=== PATIENT | male | born 1950 | race Caucasian/White ===

== ENCOUNTER → 2017-10-19 | Outpatient (CLI) | payer MEDICARE, OTHER, SELFPAY | PROVIDERS: Visit Provider Registered Nurse | DX: D69.3 Immune thrombocytopenic purpura (principal) | CPT/HCPCS: 36415; 85025 ==

== ENCOUNTER → 2017-12-15 11:54 | Outpatient (CLI) | payer MEDICARE, OTHER, SELFPAY ==
[2017-12-15 12:56] LABS: Basophils # 0.1 K/mm3 (0-0.2); Basophils % 0.5 % (0.1-2.0); Eosinophils # 0.1 K/mm3 (0.0-0.4); Hematocrit 47.2 % (42.0-52.0); Hemoglobin 15.9 g/dL (14.1-18.0); Lymphocytes % 30.4 K/mm3 (10-50); Mean Corpuscular HGB Conc 33.6 g/dL (31.8-35.4); Mean Corpuscular Hemoglobin 30.3 pg (27.0-31.2); Mean Corpuscular Volume 90.2 fl (80-94); Mean Platelet Volume 7.2 fl (7.4-10.4); Monocytes # 0.9 K/mm3 (0.1-1.0); Monocytes % 9.4 % (1.7-9.3); Neutrophils # 5.8 K/mm3 (1.8-7.8); Neutrophils % 58.7 % (37.0-80.0); Platelet Count 286 K/mm3 (142-424); Red Blood Count 5.23 M/mm3 (4.60-6.20); Red Cell Distribution Width 13.6 % (11.5-17.5); White Blood Count 9.9 K/mm3 (4.8-10.8)
== END ==
PROVIDERS: PCP Physician Assistant; Visit Provider Registered Nurse
DX: D69.3 Immune thrombocytopenic purpura (principal)
CPT/HCPCS: 36415; 85025

== ENCOUNTER → 2018-03-07 17:33 | Outpatient (CLI) | payer MEDICARE, SELFPAY ==
[2018-03-07 18:18] LABS: Basophils % 0.5 % (0.1-2.0); Eosinophils # 0.1 K/mm3 (0.0-0.4); Eosinophils % 1.4 % (0.1-12.0); Hematocrit 43.8 % (42.0-52.0); Hemoglobin 14.4 g/dL (14.1-18.0); Lymphocytes # 2.2 K/mm3 (0.7-4.5); Lymphocytes % 29.9 K/mm3 (10-50); Mean Corpuscular HGB Conc 32.9 g/dL (31.8-35.4); Mean Corpuscular Hemoglobin 31.3 pg (27.0-31.2); Mean Corpuscular Volume 95.1 fl (80-94); Mean Platelet Volume 7.5 fl (7.4-10.4); Monocytes # 0.5 K/mm3 (0.1-1.0); Monocytes % 6.6 % (1.7-9.3); Neutrophils # 4.4 K/mm3 (1.8-7.8); Neutrophils % 61.5 % (37.0-80.0); Platelet Count 252 K/mm3 (142-424); Red Cell Distribution Width 12.7 % (11.5-17.5); White Blood Count 7.2 K/mm3 (4.8-10.8)
[2018-03-07 19:04] LABS: Blood Urea Nitrogen 15 mg/dL (7-18); Carbon Dioxide 28 mmol/L (21.0-32.0); Creatinine,Serum 1.04 mg/dL (0.70-1.30); Estimated Glomerular Filt Rate 71 ml/min (>60); GFR (African American) 86 ML/MIN (>60); Glucose 91 mg/dL (74-106)
[2018-03-07 19:08] LABS: Anion Gap 8.8 mEq/L (5-15); Chloride 104 mmol/L (98-107); Potassium 4.8 mmoL/L (3.5-5.1); Sodium 136 mmol/L (136-145)
== END ==
PROVIDERS: Visit Provider Registered Nurse
DX: D69.3 Immune thrombocytopenic purpura (principal)
CPT/HCPCS: 36415; 80048; 85025

== ENCOUNTER → 2018-04-27 14:21 | Outpatient (CLI) | payer MEDICARE, SELFPAY ==
[2018-04-27 14:45] LABS: Basophils % 0.3 % (0.1-2.0); Eosinophils # 0.1 K/mm3 (0.0-0.4); Eosinophils % 1.8 % (0.1-12.0); Hematocrit 43.1 % (42.0-52.0); Hemoglobin 13.9 g/dL (14.1-18.0); Lymphocytes # 1.9 K/mm3 (0.7-4.5); Lymphocytes % 26.9 K/mm3 (10-50); Mean Corpuscular HGB Conc 32.1 g/dL (31.8-35.4); Mean Corpuscular Hemoglobin 29.8 pg (27.0-31.2); Mean Corpuscular Volume 92.7 fl (80-94); Mean Platelet Volume 7.3 fl (7.4-10.4); Monocytes # 0.6 K/mm3 (0.1-1.0); Neutrophils # 4.4 K/mm3 (1.8-7.8); Platelet Count 235 K/mm3 (142-424); Red Blood Count 4.65 M/mm3 (4.60-6.20); Red Cell Distribution Width 12.8 % (11.5-17.5); White Blood Count 6.9 K/mm3 (4.8-10.8)
[2018-04-27 17:04] LABS: Anion Gap 13.2 mEq/L (5-15); Blood Urea Nitrogen 14 mg/dL (7-18); Calcium 8.3 mg/dL (8.5-10.1); Carbon Dioxide 24 mmol/L (21.0-32.0); Chloride 105 mmol/L (98-107); Creatinine,Serum 1.04 mg/dL (0.70-1.30); Estimated Glomerular Filt Rate 71 ml/min (>60); GFR (African American) 86 ML/MIN (>60); Glucose 99 mg/dL (74-106); Potassium 4.2 mmoL/L (3.5-5.1); Sodium 138 mmol/L (136-145)
== END ==
PROVIDERS: Visit Provider Family Medicine
DX: D69.3 Immune thrombocytopenic purpura (principal)
CPT/HCPCS: 36415; 80048; 85025

== ENCOUNTER → 2018-06-16 09:47 | Outpatient (CLI) | payer MEDICARE, OTHER, SELFPAY ==
[2018-06-16 10:34] LABS: Basophils % 0.6 % (0.1-2.0); Eosinophils # 0.2 K/mm3 (0.0-0.4); Hematocrit 44.1 % (42.0-52.0); Hemoglobin 14.4 g/dL (14.1-18.0); Lymphocytes % 25.3 K/mm3 (10-50); Mean Corpuscular HGB Conc 32.8 g/dL (31.8-35.4); Mean Corpuscular Hemoglobin 30.7 pg (27.0-31.2); Mean Corpuscular Volume 93.7 fl (80-94); Mean Platelet Volume 6.8 fl (7.4-10.4); Monocytes # 0.6 K/mm3 (0.1-1.0); Monocytes % 8.2 % (1.7-9.3); Neutrophils # 4.9 K/mm3 (1.8-7.8); Neutrophils % 63.8 % (37.0-80.0); Platelet Count 253 K/mm3 (142-424); Red Cell Distribution Width 13.4 % (11.5-17.5); White Blood Count 7.7 K/mm3 (4.8-10.8)
[2018-06-16 10:52] LABS: Alanine Aminotransferase 29 U/L (12-78); Albumin Level 3.9 gm/dL (3.4-5.0); Albumin/Globulin Ratio 1.1 (1.1-1.8); Alkaline Phosphatase 113 U/L (46-116); Anion Gap 13.4 mEq/L (5-15); Aspartate Amino Transferase 18 U/L (15-37); Bilirubin,Total 0.5 mg/dL (0.2-1.0); Blood Urea Nitrogen 9 mg/dL (7-18); Calcium 9.2 mg/dL (8.5-10.1); Carbon Dioxide 28 mmol/L (21.0-32.0); Chloride 104 mmol/L (98-107); Chol/HDL Ratio 3.5 (1-3.5); Cholesterol 126 mg/dL (140-200); Estimated Glomerular Filt Rate 74 ml/min (>60); GFR (African American) 90 ML/MIN (>60); Globulin 3.5 gm/dl (1.3-3.2); Glucose 122 mg/dL (74-106); HDL Cholesterol 36 mg/dL (27-67); LDL Cholesterol 72 mg/dL (0-130); Potassium 5.4 mmoL/L (3.5-5.1); Sodium 140 mmol/L (136-145); Total Protein,Serum 7.4 gm/dL (6.4-8.2); Triglycerides 90 mg/dL (30-200); VLDL Cholesterol 18 mg/dL (0-40)
== END ==
PROVIDERS: Registered Nurse; Visit Provider Physician Assistant Medical
DX: E78.5 Hyperlipidemia, unspecified (principal); D69.3 Immune thrombocytopenic purpura
CPT/HCPCS: 36415; 80053; 80061; 85025

== ENCOUNTER → 2018-06-18 10:21 | Outpatient (CLI) | payer MEDICARE, SELFPAY ==
[2018-06-18 11:45] LABS: Anion Gap 11.8 mEq/L (5-15); Blood Urea Nitrogen 13 mg/dL (7-18); Calcium 9.1 mg/dL (8.5-10.1); Carbon Dioxide 29 mmol/L (21.0-32.0); Chloride 102 mmol/L (98-107); Creatinine,Serum 1.09 mg/dL (0.70-1.30); Estimated Glomerular Filt Rate 67 ml/min (>60); GFR (African American) 81 ML/MIN (>60); Glucose 111 mg/dL (74-106); Potassium 4.8 mmoL/L (3.5-5.1); Sodium 138 mmol/L (136-145)
== END ==
PROVIDERS: Visit Provider Physician Assistant
DX: E87.5 Hyperkalemia (principal); D69.3 Immune thrombocytopenic purpura
CPT/HCPCS: 36415; 80048

== ENCOUNTER → 2018-12-26 10:01 | Outpatient (CLI) | payer MEDICARE, OTHER, SELFPAY ==
[2018-12-26 10:25] LABS: Basophils % 0.3 % (0.1-2.0); Eosinophils # 0.1 K/mm3 (0.0-0.4); Hematocrit 41.4 % (42.0-52.0); Hemoglobin 13.8 g/dL (14.1-18.0); Lymphocytes # 1.6 K/mm3 (0.7-4.5); Lymphocytes % 24.7 % (10-50); Mean Corpuscular HGB Conc 33.3 g/dL (31.8-35.4); Mean Corpuscular Hemoglobin 31.3 pg (27.0-31.2); Mean Corpuscular Volume 94.1 fl (80-94); Mean Platelet Volume 7.5 fl (7.4-10.4); Monocytes # 0.3 K/mm3 (0.1-1.0); Neutrophils # 4.4 K/mm3 (1.8-7.8); Neutrophils % 67.9 % (37.0-80.0); Platelet Count 226 K/mm3 (142-424); Red Cell Distribution Width 13.2 % (11.5-17.5); White Blood Count 6.4 K/mm3 (4.8-10.8)
== END ==
PROVIDERS: Visit Provider Nurse Practitioner Family
DX: D69.3 Immune thrombocytopenic purpura (principal)
CPT/HCPCS: 36415; 85025

== ENCOUNTER → 2019-04-10 09:46 | Outpatient (CLI) | payer MEDICARE, OTHER, SELFPAY ==
[2019-04-10 10:43] LABS: Basophils % 0.4 % (0.1-2.0); Eosinophils # 0.1 K/mm3 (0.0-0.4); Eosinophils % 1.7 % (0.1-12.0); Hematocrit 41.4 % (42.0-52.0); Hemoglobin 13.7 g/dL (14.1-18.0); Lymphocytes # 2.3 K/mm3 (0.7-4.5); Mean Corpuscular HGB Conc 33.2 g/dL (31.8-35.4); Mean Corpuscular Hemoglobin 30.2 pg (27.0-31.2); Mean Platelet Volume 6.6 fl (7.4-10.4); Monocytes # 0.7 K/mm3 (0.1-1.0); Monocytes % 8.8 % (1.7-9.3); Neutrophils # 4.5 K/mm3 (1.8-7.8); Neutrophils % 59.1 % (37.0-80.0); Platelet Count 230 K/mm3 (142-424); Red Blood Count 4.55 M/mm3 (4.60-6.20); Red Cell Distribution Width 12.8 % (11.5-17.5); White Blood Count 7.7 K/mm3 (4.8-10.8)
== END ==
PROVIDERS: Visit Provider Nurse Practitioner Family
DX: D69.3 Immune thrombocytopenic purpura (principal)
CPT/HCPCS: 36415; 85025

== ENCOUNTER → 2019-07-14 09:47 | Outpatient (CLI) | payer MEDICARE, OTHER, SELFPAY ==
[2019-07-14 10:09] LABS: Basophils % 0.5 % (0.1-2.0); Eosinophils # 0.1 K/mm3 (0.0-0.4); Eosinophils % 1.3 % (0.1-12.0); Hematocrit 45.8 % (42.0-52.0); Hemoglobin 14.4 g/dL (14.1-18.0); Lymphocytes # 2.3 K/mm3 (0.7-4.5); Lymphocytes % 27.7 % (10-50); Mean Corpuscular HGB Conc 31.6 g/dL (31.8-35.4); Mean Corpuscular Hemoglobin 30.7 pg (27.0-31.2); Mean Corpuscular Volume 97.2 fl (80-94); Mean Platelet Volume 7.6 fl (7.4-10.4); Monocytes # 0.7 K/mm3 (0.1-1.0); Monocytes % 8.2 % (1.7-9.3); Neutrophils # 5.1 K/mm3 (1.8-7.8); Neutrophils % 62.2 % (37.0-80.0); Platelet Count 270 K/mm3 (142-424); Red Blood Count 4.71 M/mm3 (4.60-6.20); Red Cell Distribution Width 13.3 % (11.5-17.5); White Blood Count 8.2 K/mm3 (4.8-10.8)
[2019-07-14 10:48] LABS: Alanine Aminotransferase 28 U/L (12-78); Albumin Level 3.8 gm/dL (3.4-5.0); Albumin/Globulin Ratio 1.1 (1.1-1.8); Alkaline Phosphatase 113 U/L (46-116); Anion Gap 15.6 mEq/L (5-15); Aspartate Amino Transferase 20 U/L (15-37); Bilirubin,Total 0.4 mg/dL (0.2-1.0); Blood Urea Nitrogen 17 mg/dL (7-18); Calcium 8.6 mg/dL (8.5-10.1); Carbon Dioxide 25 mmol/L (21.0-32.0); Chloride 103 mmol/L (98-107); Chol/HDL Ratio 4.4 (1-3.5); Cholesterol 144 mg/dL (140-200); Creatinine,Serum 1.06 mg/dL (0.70-1.30); Estimated Glomerular Filt Rate 69 ml/min (>60); GFR (African American) 84 ML/MIN (>60); Globulin 3.5 gm/dl (1.3-3.2); Glucose 110 mg/dL (74-106); HDL Cholesterol 33 mg/dL (27-67); LDL Cholesterol 94 mg/dL (0-130); Potassium 4.6 mmoL/L (3.5-5.1); Sodium 139 mmol/L (136-145); Total Protein,Serum 7.3 gm/dL (6.4-8.2); Triglycerides 87 mg/dL (30-200); VLDL Cholesterol 17 mg/dL (0-40)
== END ==
PROVIDERS: Internal Medicine Cardiovascular Disease; Visit Provider Nurse Practitioner Family
DX: E78.5 Hyperlipidemia, unspecified (principal)
CPT/HCPCS: 36415; 80053; 80061; 85025

== ENCOUNTER → 2019-09-26 08:59 | Outpatient (POV) | payer MEDICARE, OTHER, SELFPAY | PROVIDERS: Visit Provider Dermatology | DX: Z00.00 Encounter for general adult medical examination without abnormal findings (principal) ==

== ENCOUNTER → 2019-10-30 08:37 | Outpatient (CLI) | payer MEDICARE, OTHER, SELFPAY ==
[2019-10-30 09:02] LABS: Basophils # 0.1 K/mm3 (0-0.2); Basophils % 0.7 % (0.1-2.0); Eosinophils # 0.2 K/mm3 (0.0-0.4); Eosinophils % 1.5 % (0.1-12.0); Hematocrit 45.9 % (42.0-52.0); Hemoglobin 14.5 g/dL (14.1-18.0); Lymphocytes # 2.9 K/mm3 (0.7-4.5); Lymphocytes % 30.7 % (10-50); Mean Corpuscular HGB Conc 31.5 g/dL (31.8-35.4); Mean Corpuscular Hemoglobin 30.2 pg (27.0-31.2); Mean Corpuscular Volume 95.7 fl (80-94); Mean Platelet Volume 7.2 fl (7.4-10.4); Monocytes # 0.8 K/mm3 (0.1-1.0); Monocytes % 8.1 % (1.7-9.3); Neutrophils # 5.6 K/mm3 (1.8-7.8); Platelet Count 285 K/mm3 (142-424); Red Cell Distribution Width 13.9 % (11.5-17.5); White Blood Count 9.4 K/mm3 (4.8-10.8)
[2019-10-31 10:53] LABS: Cholesterol 140 mg/dL (140-200); LDL Cholesterol 75 mg/dL (0-130); Triglycerides 152 mg/dL (30-200); VLDL Cholesterol 30 mg/dL (0-40)
[2019-10-31 10:54] LABS: HDL Cholesterol 35 mg/dL (27-67)
== END ==
PROVIDERS: Internal Medicine Cardiovascular Disease; Visit Provider Nurse Practitioner Family
DX: D69.3 Immune thrombocytopenic purpura (principal); E78.5 Hyperlipidemia, unspecified; I10 Essential (primary) hypertension
CPT/HCPCS: 36415; 80061; 85025

== ENCOUNTER → 2019-11-07 09:52 | Outpatient (POV) | payer MEDICARE, OTHER, SELFPAY | PROVIDERS: Visit Provider Dermatology | DX: Z00.00 Encounter for general adult medical examination without abnormal findings (principal) ==

== ENCOUNTER → 2019-11-14 08:58 | Outpatient (POV) | payer MEDICARE, OTHER, SELFPAY | PROVIDERS: Visit Provider Dermatology | DX: Z00.00 Encounter for general adult medical examination without abnormal findings (principal) ==

== ENCOUNTER → 2020-08-15 14:24 | Outpatient (CLI) | payer MEDICARE, OTHER, SELFPAY ==
[2020-08-15 14:44] LABS: Basophils # 0.3 K/mm3 (0-0.2); Eosinophils # 0.1 K/mm3 (0.0-0.4); Eosinophils % 1.1 % (0.1-12.0); Hematocrit 45.1 % (42.0-52.0); Hemoglobin 14.4 g/dL (14.1-18.0); Lymphocytes % 20.9 % (10-50); Mean Corpuscular Hemoglobin 31.3 pg (27.0-31.2); Mean Corpuscular Volume 97.9 fl (80-94); Mean Platelet Volume 13.3 fl (7.4-10.4); Monocytes # 0.8 K/mm3 (0.1-1.0); Monocytes % 8.1 % (1.7-9.3); Neutrophils # 6.5 K/mm3 (1.8-7.8); Neutrophils % 66.9 % (37.0-80.0); Platelet Count 296 K/mm3 (142-424); Red Blood Count 4.61 M/mm3 (4.60-6.20); Red Cell Distribution Width 14.4 % (11.5-17.5); White Blood Count 9.7 K/mm3 (4.8-10.8)
[2020-08-15 15:34] LABS: Chloride 103 mmol/L (98-107); Potassium 4.7 mmoL/L (3.5-5.1); Sodium 139 mmol/L (136-145)
[2020-08-15 15:36] LABS: Alanine Aminotransferase 17 U/L (12-78); Aspartate Amino Transferase 24 U/L (17-59); Blood Urea Nitrogen 14 mg/dl (9-20); Estimated Glomerular Filt Rate 66 ml/min (>60); GFR (African American) 80 ML/MIN (>60)
[2020-08-15 15:37] LABS: Albumin Level 4.3 g/dl (3.5-5.0); Albumin/Globulin Ratio 1.4 (1.1-1.8); Alkaline Phosphatase 101 U/L (38-126); Anion Gap 13.7 mEq/L (5-15); Bilirubin,Total 0.7 mg/dl (0.2-1.3); Calcium 9.5 mg/dl (8.4-10.2); Carbon Dioxide 27 mmol/L (22.0-30.0); Chol/HDL Ratio 4.4 (1-3.5); Cholesterol 151 mg/dl (140-200); Glucose 104 mg/dl (74-100); HDL Cholesterol 34 mg/dl (40-60); Total Protein,Serum 7.3 g/dl (6.3-8.2); Triglycerides 164 mg/dl (30-150); VLDL Cholesterol 33 mg/dL (0-40)
== END ==
PROVIDERS: Visit Provider Nurse Practitioner
DX: I10 Essential (primary) hypertension (principal); E78.5 Hyperlipidemia, unspecified
CPT/HCPCS: 36415; 80053; 80061; 85025

== ENCOUNTER → 2021-10-02 08:57 | Outpatient (CLI) | payer MEDICARE, OTHER, SELFPAY ==
[2021-10-02 10:00] LABS: Chloride 104 mmol/L (98-107); Potassium 4.5 mmoL/L (3.5-5.1); Sodium 140 mmol/L (136-145)
[2021-10-02 10:02] LABS: Blood Urea Nitrogen 16 mg/dl (9-20); Estimated Glomerular Filt Rate 66 ml/min (>60); GFR (African American) 80 ML/MIN (>60)
[2021-10-02 10:03] LABS: Alanine Aminotransferase 17 U/L (12-78); Albumin Level 4.2 g/dl (3.5-5.0); Albumin/Globulin Ratio 1.5 (1.1-1.8); Alkaline Phosphatase 129 U/L (38-126); Anion Gap 12.5 mEq/L (5-15); Aspartate Amino Transferase 30 U/L (17-59); Bilirubin,Total 0.4 mg/dl (0.2-1.3); Calcium 9.1 mg/dl (8.4-10.2); Carbon Dioxide 28 mmol/L (22.0-30.0); Cholesterol 139 mg/dl (140-200); Globulin 2.8 g/dL (1.3-3.2); Glucose 121 mg/dl (74-100); Triglycerides 132 mg/dl (30-150); VLDL Cholesterol 26 mg/dL (0-40)
[2021-10-02 10:04] LABS: Chol/HDL Ratio 4.1 (1-3.5); HDL Cholesterol 34 mg/dl (40-60)
[2021-10-02 15:23] LABS: Platelet Count 283 K/mm3 (142-424)
[2021-10-02 18:04] LABS: Prostate Specific Ag Screen 0.9 ng/ml (0.0-4.0)
== END ==
PROVIDERS: Visit Provider Nurse Practitioner
DX: I10 Essential (primary) hypertension (principal); E78.5 Hyperlipidemia, unspecified; R94.31 Abnormal electrocardiogram [ECG] [EKG]; Z12.5 Encounter for screening for malignant neoplasm of prostate
CPT/HCPCS: 36415; 80053; 80061; 85049; G0103

== ENCOUNTER → 2021-12-09 15:05 | Outpatient (CLI) | payer MEDICARE, OTHER, SELFPAY ==
[2021-12-09 15:56] LABS: Basophils # 0.1 K/mm3 (0-0.2); Basophils % 0.7 % (0.1-2.0); Eosinophils % 0.2 % (0.1-12.0); Hematocrit 46.3 % (42.0-52.0); Hemoglobin 14.8 g/dL (14.1-18.0); Lymphocytes # 1.4 K/mm3 (0.7-4.5); Lymphocytes % 13.2 % (10-50); Mean Corpuscular HGB Conc 32.1 g/dL (31.8-35.4); Mean Corpuscular Hemoglobin 31.2 pg (27.0-31.2); Mean Corpuscular Volume 97.5 fl (80-94); Mean Platelet Volume 7.7 fl (7.4-10.4); Monocytes # 0.8 K/mm3 (0.1-1.0); Monocytes % 7.9 % (1.7-9.3); Neutrophils % 77.9 % (37.0-80.0); Platelet Count 324 K/mm3 (142-424); Red Blood Count 4.75 M/mm3 (4.60-6.20); Red Cell Distribution Width 13.2 % (11.5-17.5); White Blood Count 10.2 K/mm3 (4.8-10.8)
[2021-12-09 17:15] LABS: Anion Gap 13.7 mEq/L (5-15); Blood Urea Nitrogen 12 mg/dl (9-20); Calcium 9.2 mg/dl (8.4-10.2); Carbon Dioxide 28 mmol/L (22.0-30.0); Chloride 98 mmol/L (98-107); Estimated Glomerular Filt Rate 95 ml/min (>60); GFR (African American) 115 ML/MIN (>60); Glucose 110 mg/dl (74-100); Potassium 4.7 mmoL/L (3.5-5.1); Sodium 135 mmol/L (136-145)
[2021-12-09 17:29] LABS: Free T4 (Free Thyroxine) 1.16 ng/dl (0.78-2.19)
[2021-12-09 17:38] LABS: Troponin I < 0.01 ng/ml (0.00-0.034)
[2021-12-09 17:46] LABS: Thyroid Stimulating Hormone 0.88 uIU/mL (0.465-4.68)
== END ==
PROVIDERS: Visit Provider Nurse Practitioner Family
DX: E78.5 Hyperlipidemia, unspecified (principal); I10 Essential (primary) hypertension; R42 Dizziness and giddiness
CPT/HCPCS: 36415; 80048; 84439; 84443; 84484; 85025

== ENCOUNTER → 2021-12-12 14:23 | Outpatient (CLI) | payer MEDICARE, OTHER, SELFPAY ==
--- NOTE | 2021-12-12 14:23 | CA_ITS ---
APPROVED REPORT EXAM: Comprehensive 2D, Doppler, and color-flow Echocardiogram Neuro Urologist: Megan Green, JOANN, RVS Ht: 5 ft 11 in Wt: 206lbs BSA: 2.13 BP: 140/86 mmHg Indications: Dizziness, Palpitations,HTN, HLD, hx-covid, S/p dental abcess 2D Dimensions LVDd 4.49 cm LVEF (Visual) 74.20 % LVDs 2.56 cm LA Volume 43.90 mL Aortic Root 2.82 cm LA Volume Index [id number] mL/m2 (M/F) 16-34 Left Atrium 3.38 cm LVOT 2.05 cm (M/F) 1.5-2.5 M-Mode Dimensions LA Diam 3.53 cm (1.9-4.0) Ao Diam 3.39 cm (2.0-3.7) EPSs 0.72 cm TAPSE 2.98 (<1.7) LV Diastology E Decel Time 297.00 (160-240 msec) E/A Ratio 1.19 MED E' 8.70 (< 7 cm/sec) MED A' 9.60 cm/s E'/MED E' Ratio 6.49 (>14) LAT E' 7.60 (<10 cm/sec) LAT A' 10.50 cm/s E/LAT E' Ratio 7.43 (>14) Aortic Valve LVOT Max 101.00 (70-110 cm/s) LVOT VTI 20.35 cm AoV Peak Johny. 145.00 (50-130 cm/s) AO Peak GR. 8.40 mmHg AO Mean GR. 4.70 (<5 mmHg) AO VTI 30.11 (18-25 cm) NATHALIA (VTI) 2.23 (2.5-4.5 cm2) Mitral Valve MV A Velocity 47.00 (40-130 cm/s) E/A Ratio 1.19 MV Decel. Time 297.00 (160-240 ms) MV Mean Gr. 0.40 (<2mmHg) MV PHT 53.00 ms Pulmonary Valve PV Peak Velocity 88.00 (50-150 cm/s) [place] End VMAX 185.00 cm/s Tricuspid Valve TR P. Velocity 258.00 cm/s RAP Estimate 10.00 mmHg RVSP 36.70 mmHg Left Ventricle Left atrium is mildly enlarged, left ventricle is normal size, mild concentric left ventricular hypertrophy, visually estimated ejection fraction 55% with no regional wall motion abnormality, diastolic parameters are inconclusive in the study. Right Ventricle Right atrium and right ventricle are mildly enlarged with normal contractility. Aortic Valve Aortic valve is minimally thickened and fibrosed, there is no aortic stenosis or aortic insufficiency. Mitral Valve Mitral valve grossly normal, there is trace mitral regurgitation. Tricuspid Valve Tricuspid valve grossly normal, there is trace tricuspid regurgitation, calculated right ventricular systolic pressure 37 mmHg. Pulmonic Valve Pulmonic valve is poorly visualized. Great Vessels Aortic root is normal size. Inferior vena cava is normal size with normal inspiratory collapse. Pericardium No significant pericardial effusion noted. Conclusion 1. Biatrial enlargement, normal left ventricular size, mild concentric left ventricular hypertrophy, visually estimated ejection fraction 55% with no regional wall motion abnormality, diastolic parameters are inconclusive. 2. Mildly enlarged right ventricle with normal contractility. 3. Trace mitral and tricuspid regurgitation. Calculated right ventricular systolic pressure 37mmHg. 4. No significant pericardial effusion noted. 5. Inferior vena cava is normal size normal inspiratory collapse. Electronically signed by : Yovanny Cobb MD 12/12/2021 15:45:53
--- NOTE | 2021-12-12 14:23 | CA_ITS ---
FINAL REPORT TECHNIQUE: Color Doppler, duplex Doppler and figueroa scale sonography of the bilateral neck arterial vasculature was performed. Velocities were measured in the carotid arteries. Stenosis evaluation based on the validated velocity criteria. CLINICAL HISTORY: dizziness, HTN, HLD,Palpitations FINDINGS: The peak systolic velocity of the right common carotid artery is 96 cm/s. The peak systolic velocity of the right internal carotid artery is 77 cm/s and end diastolic velocity 28 cm/s. The ICA/CCA ratio is 1.18. A small amount of plaque is present. The right external carotid artery is patent. The right vertebral artery is patent with antegrade flow. The peak systolic velocity of the left common carotid artery is 86 cm/s. The peak systolic velocity of the left internal carotid artery is 94 cm/s and end diastolic velocity 39 cm/s. The ICA/CCA ratio is 1.2. A small amount of plaque is present. The left external carotid artery is patent.The left vertebral artery is patent with antegrade flow. IMPRESSION: Less than 50% bilateral carotid stenoses. Bilateral patent vertebral arteries with antegrade flow. If indicated, CTA or MRA could further evaluate. Reviewed, Interpreted and Dictated by Jared Nolan III, MD Transcribed by Payal Gomez Authenticated by Jared Nolan III, MD on 12/12/2021 04:09:15 PM [facility]
== END ==
PROVIDERS: Visit Provider Nurse Practitioner Family
DX: E78.5 Hyperlipidemia, unspecified (principal); I10 Essential (primary) hypertension; R42 Dizziness and giddiness; D69.3 Immune thrombocytopenic purpura; R00.2 Palpitations
CPT/HCPCS: 93270; 93306; 93880

== ENCOUNTER → 2021-12-25 09:20 | Outpatient (CLI) | payer MEDICARE, OTHER, SELFPAY ==
--- NOTE | 2021-12-25 09:21 | CT_ITS ---
FINAL REPORT TECHNIQUE: Multiple axial CT sections were performed from the foramen magnum to the vertex. Coronal reformatted images were also obtained. Precontrast and postcontrast injection images were obtained. This study was performed with technique to keep radiation doses as low as reasonably achievable, (ALARA). Individualized dose reduction techniques using automated exposure control or adjustment of mA and/or kV according to the patient size were employed. CLINICAL HISTORY: DIZZINESS, patient states right ear pain, feels full FINDINGS: The ventricles are normal in size. The brain parenchyma is homogeneous. There is no evidence of hemorrhage. No masses are identified. No extra-axial fluid collection is seen. There is a prominent cisterna magna. There is mild mucoperiosteal thickening in the right maxillary sinus. The mastoid air cells are well aerated. The middle ear cavities are well aerated. No osseous abnormality is seen on the bone window images. Postcontrast images demonstrate no abnormal enhancement. IMPRESSION: No acute intracranial abnormality. Mild mucoperiosteal thickening in the right maxillary sinus. Reviewed, Interpreted and Dictated by Romel Rodriguez MD Transcribed by Maria G Figueroa Authenticated by Romel Rodriguez MD on 12/25/2021 12:52:44 PM [facility]
== END ==
PROVIDERS: PCP Internal Medicine; Visit Provider Physician Assistant
DX: E78.5 Hyperlipidemia, unspecified (principal); I10 Essential (primary) hypertension; I65.29 Occlusion and stenosis of unspecified carotid artery; R42 Dizziness and giddiness
CPT/HCPCS: 70470

== ENCOUNTER 2021-12-25 19:46 | Emergency (ER) | payer MEDICARE, OTHER, SELFPAY ==
[2021-12-25 20:02] VITALS: BP 110/67; PULSE 61; RESP 18; TEMP 37.1; O2SAT 99
--- NOTE | 2021-12-25 20:19 | HMH.EDUTC ---
[facility] Disposition Clinical Impression: Dizziness, Vertigo Otitis media Qualifiers: Otitis media type: unspecified Laterality: right Qualified Code(s): H66.91 - Otitis media, unspecified, right ear Disposition: Home, Self-Care Condition on Discharge: Good Instructions: Middle Ear Infection, Azithromycin, Meclizine, DI for Vertigo Additional Instructions: Take meclizine as prescribed as needed for Dizziness/Vertigo Follow up with Family Doctor if no improvement or any worsening of symptoms Take medication as prescribed Return if needed Straight to ER if any life threatening symptoms Prescriptions: Meclizine HCl 12.5 mg PO Q8HP PRN #15 tab PRN Reason: Dizziness Transmission Status: Received by [id number] predniSONE [Deltasone 10mg tablet] 10 mg PO BID 5 Days #10 tab Transmission Status: Received by [id number] Azithromycin [Z-Sukhi 250mg Tab] 250 mg PO DIRECTED #6 tab Transmission Status: Received by [id number] Referrals: Provider,Referral, MD [Primary Care Provider] - As needed Time of Disposition: 21:03 Medical Decision Making - Keo Inquiry Pt receiving controlled substance: No Keo was queried for this patient: No Vital Signs: 12/25/21 20:02 Temperature 98.8 F Temperature Source Oral Pulse Rate [Right Radial] 61 Respiratory Rate 18 Blood Pressure [Right Arm] 110/67 Blood Pressure Mean [Right Arm] 81 Blood Pressure Source [Right Arm] Automatic Cuff Blood Pressure Position [Right Arm] Sitting 02 Sat by Pulse Oximetry 99 Oxygen Delivery Method Room Air Orders (Tests/Meds): ED MEDICATIONS Discontinued Medications Generic Name Dose Route Start Last Admin Trade Name Nathalie PRN Reason Stop Dose Admin Meclizine HCl 25 mg 12/25/21 20:26 12/25/21 20:34 Meclizine 25mg Tablet PO 12/25/21 20:27 25 mg ONCE ONE Administration Medical Decision Narrative: Medication discussed with pharmacy After medication patient reports vertigo much improved and now almost gone able to stand and walk without feeling like he is going to tip over States that he still has pain/pressure in ear but dizziness is now gone [facility] HPI - General Stated complaint: dizzy Time Seen by Provider: 12/25/21 20:19 Mode of Arrival: Ambulatory Source of Information: Patient Limitations: No Limitations Description of Symptoms (Recalled from Triage Doc. by RN): Pt c/o dizziness HEENT Symptoms (Recalled from RN notes): Yes (C/O dizziness) Resp Symptoms (Recalled from RN notes): No Skin Symptoms (Recalled from RN notes): No MS Symptoms (Recalled from RN notes): No Functional Status (Recalled from RN notes): n/a - History of Present Illness Provider Complaint: Patient states that he has been having feeling of fullness and pain in his right ear States that for about the last week he has been having episodes of dizziness after he had his tooth pulled and was started on Antibiotics State that he stopped taking the medication then the dizziness improved but the dentist told him that he had to take it so he started it back but was only taking half the dose States that then he started getting dizzy again States that then he saw his Doctor in the Cardiology clinic and they did a bunch of tests and CT of his head States that he wasnt that dizzy until he got up from the table after the ct Statse that ever since when he moves quickly or stands he feels like the room is spinning and he is going to fall and still having pain/fullness in his right ear - Related Data Home Medications Medication Instructions Recorded Confirmed atorvastatin 40 mg tablet 40 mg PO DAILY tab 12/09/21 12/23/21 lisinopril 5 mg tablet 5 mg PO BID 90 Days #180 tab 12/09/21 12/23/21 Previous Rx's Medication Instructions Recorded Azithromycin [Z-Sukhi 250mg Tab] 250 mg PO DIRECTED #6 tab 12/25/21 Meclizine HCl 12.5 mg PO Q8HP PRN #15 tab 12/25/21 predniSONE [Deltasone 10mg tablet] 10 mg PO BID 5 Days #1
[2021-12-25 20:27] VITALS: BMI 28.7
[2021-12-25 21:04] VITALS: BP 110/67; PULSE 61; RESP 18; TEMP 37.1; O2SAT 99
== END 2021-12-25 21:07 | disposition home or self-care (01) ==
PROVIDERS: Emergency Provider Nurse Practitioner
DX: R42 Dizziness and giddiness (principal); H66.91 Otitis media, unspecified, right ear; I10 Essential (primary) hypertension; E78.5 Hyperlipidemia, unspecified
CPT/HCPCS: G0463; 70470; 99202; 99212; 99213; Q9967

== ENCOUNTER 2022-04-01 13:51 | Outpatient (RCR) | payer MEDICARE, OTHER, SELFPAY ==
--- NOTE | 2022-04-01 15:12 | HMH.PTOPEV ---
PT Outpatient Evaluation Rehab PT Outpatient Evaluation Start: 04/01/22 15:00 Freq: Status: Active Protocol: Document 04/01/22 15:01 MARY JANEMAKAYLA (Rec: 04/01/22 15:12 OLU [id number]) Electronically Signed By Dinesh Ag PT 04/01/22 15:01 Outpatient Therapy Subjective History Subjective History This is the initial Physical Therapy vestibular evaluation for Petar Acosta. Pt is a 71 y/o male referred to PT for c/ o dizziness . Pt reports several weeks ago he had an abscess tooth. Pt reports after dental appointment he continued to have pain. Pt states he went back and was told he had infection and dry socket . Pt reports he started taking amoxacillin and that was when he began noticing his dizziness. Pt states he feels spinning and almost going out w/ change in position, specifically sitting t supine or supine to sitting. Chief Complaint Other Symptom Type Other Symptoms Relieved By Rest/Positioning Symptoms Aggravated By Supine,Sitting,Standing, Bending/Stooping Prior Functional Limitations None Current Functional Limitations Recreation Activity,Bending/ Stooping Symptom Description Intermittent Balance Eval Chief Complaint vertigo Yes Did you feel dizzy, unsteady or faint? Yes Activity at onset change in position Hx of Falls Hx Falls No Gait/Posture Asssessment General Gait Observation No Deviations/Normal Assistive Devices None / NA Level of Transfer Assist Independent Hip Observation in Gait Swing No Deviation Hip Observation in Gait Stance No Deviation Ankle/Foot Observation in Gait Swing No Deviation Ankle/Foot Observation in Gait Stance No Deviation Hip Posture Standing Position (L) Neutral,(R) Neutral Body Alignment Posture Relaxed Nystagmus Nystagmus Presence Unilateral Nystagmus Description Right Direction,Geotropic,Left Torsion Oculomotor Gaze Oculomotor Gaze Nml: Vergence Smooth Pursuit Saccades VOR
== END 2022-04-01 13:55 | disposition home or self-care (01) ==
LOC: PT 13:51
PROVIDERS: PCP Internal Medicine; Visit Provider Student in an Organized Health Care Education/Training Program
DX: R42 Dizziness and giddiness (principal)
CPT/HCPCS: 97110; 97163

== ENCOUNTER 2022-07-04 10:27 | Emergency (ER) | payer MEDICARE, OTHER, SELFPAY ==
[2022-07-04 10:45] VITALS: BP 120/77; PULSE 68; RESP 18; TEMP 37.1; O2SAT 98; BMI 29.7
--- NOTE | 2022-07-04 10:46 | XR_ITS ---
PROCEDURE INFORMATION: Exam: XR Left Elbow Exam date and time: 07/04/2022 10:56 AM Age: 72 years old Clinical indication: Injury or trauma; Fall; Blunt trauma (contusions or hematomas); Elbow; Left; Additional info: Injured it climbing in to a truck TECHNIQUE: Imaging protocol: Radiologic exam of the Left elbow. Views: 3 or more views. COMPARISON: No relevant prior studies available. FINDINGS: Bones/joints: There is a triceps enthesophyte. There is no acute fracture. There is loss of articular cartilage at the ulnar trochlear articulation with small osteophytes. Soft tissues: There is prominent soft tissue swelling at the olecranon. IMPRESSION: 1. There is no acute fracture. 2. There is prominent soft tissue swelling at the olecranon. Bursitis could be present.
--- NOTE | 2022-07-04 11:03 | EXP.UTC ---
Discharge Plan Disposition Patient Disposition: Home, Self-Care Condition: Good Prescriptions Prescriptions: No Action lisinopril 5 mg tablet 5 mg PO BID 90 Days Qty: 180 Label Comments: atorvastatin 40 mg tablet 40 mg PO DAILY Referrals Follow up/Referrals: Provider,Referral, MD [Primary Care Provider] - See instructions Activity Restrictions/Add. Instructions Additional Instructions/Restrictions: Ice elbow for 20 minutes 3 times a day. Apply compression wrap to elbow and elevate on pillow and rest. You may take Ibuprofen to assist with pain and swelling. If symptoms persist or worsen follow up with PCP. Henry wrap applied. 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 He relates that yesterday he was pulling himself up into his high boy and his elbow felt like it was broken. He relates that he took an Ibuprofen last night because of the pain. Pt states that he feel like his elbow is broken. Related Data Home Medications Medication Instructions Recorded Confirmed atorvastatin 40 mg tablet 40 mg PO DAILY Cholesterol 12/09/21 07/04/22 lisinopril 5 mg tablet 5 mg PO BID Hypertension 90 days 12/09/21 07/04/22 #180 tabs Allergies Allergy/AdvReac Type Severity Reaction Status Date / Time amoxicillin AdvReac Intermediate extreme Verified 06/17/22 14:20 dizziness [facility] Medical History (Updated 07/04/22 @ 11:48 by Shasta Casas APRN) Hyperlipidemia Hypertension Social History (Updated 07/04/22 @ 11:07 by India Myers RN) Smoking Status: Never smoker alcohol intake: never substance use type: denies use current occupational status: other Travel in the last 8 weeks: None ROS Obtained: Yes All systems reviewed & no additional complaints except as documented and Yes Systems reviewed as appropriate & no additional complaints except as documented Constitutional Constitutional: Reports system reviewed and no additional complaints, except as documented and Reports as per HPI ENT Ears, Nose, Mouth, and Throat: Reports system reviewed and no additional complaints, except as documented Cardiovascular Cardiovascular: Reports system reviewed and no additional complaints, except as documented Respiratory Respiratory: Reports system reviewed and no additional complaints, except as documented Musculoskeletal Musculoskeletal: Reports as per HPI, Reports arthralgias and Reports joint swelling Integumentary/Breasts Skin/Breast: Reports wounds Comments: Relates that when he fell he landed on gravel with his left elbow being scraped. Neurologic Neurologic: Reports system reviewed and no additional complaints, except as documented Comments: denies loss of consciousness or dizziness with fall. Physical Exam General General appearance: alert and in no apparent distress Respiratory Respiratory exam: Present normal lung sounds bilaterally; Absent respiratory distress Cardiovascular Cardiovascular exam: Present regular rate and normal rhythm Extremities Exam Extremities exam: Present tenderness, edema and joint swelling Expanded Upper Extremity Exam elbow is swollen with soft fluid fill area at the elbow. There is an area of scrapes that are healing well on the elbow: Elbow exam: Present tenderness, swelling, abrasion and effusion L/R Arms Top View: 1. swelling and warmth noted Neurological Exam Neurological exam: Present alert and oriented X3 Psychiatric Psychiatric exam: Present normal affect and normal mood Lymphatic Lymphatic Findings: no adenopathy Medical Decision Making Keo Inquiry Pt receiving controlled substance: No Keo was q
[2022-07-04 12:14] VITALS: BP 120/77; PULSE 68; RESP 18; TEMP 37.1; O2SAT 98
== END 2022-07-04 12:20 | disposition home or self-care (01) ==
PROVIDERS: Emergency Provider Nurse Practitioner Family
DX: M71.522 Other bursitis, not elsewhere classified, left elbow (principal)
CPT/HCPCS: 73080; 99212; G0463

== ENCOUNTER 2022-07-06 12:24 | Emergency (ER) | payer MEDICARE, OTHER, SELFPAY ==
--- NOTE | 2022-07-06 13:22 | XR_ITS ---
PROCEDURE INFORMATION: Exam: XR Left Forearm Exam date and time: 07/06/2022 1:38 PM Age: 72 years old Clinical indication: Swelling; Elbow; Left; Additional info: Swollen--swollen at elbow possible bursitis -- previous injury to hand and wrist at 16 shot in hand caused deformity TECHNIQUE: Imaging protocol: Radiologic exam of the Left forearm. Views: 2 views. COMPARISON: CR XR WRIST LT MIN 3V 07/06/2022 1:33 PM FINDINGS: Bones/joints: There is no evidence of acute fracture.There is no evidence of malalignment or dislocation. Degenerative changes in the radiocarpal joint and between the distal radius and ulna and in the carpal bones. Soft tissues: Normal. IMPRESSION: 1. There is no evidence of acute fracture.There is no evidence of malalignment or dislocation. 2. Degenerative changes in the radiocarpal joint and between the distal radius and ulna and in the carpal bones.
--- NOTE | 2022-07-06 13:22 | XR_ITS ---
PROCEDURE INFORMATION: Exam: XR Left Elbow Exam date and time: 07/06/2022 1:36 PM Age: 72 years old Clinical indication: Swelling; Elbow; Left; Additional info: Swollen at elbow possible bursitis -- previous injury to hand and wrist at 16 shot in hand caused deformity TECHNIQUE: Imaging protocol: Radiologic exam of the Left elbow. Views: 3 or more views. COMPARISON: CR Elbow L 07/04/2022 10:56 AM FINDINGS: Bones/joints: Degenerative changes in the humeral ulnar joint. Avulsion of osteophytes from the olecranon. There is no evidence of acute fracture.There is no evidence of malalignment or dislocation. Soft tissues: Soft tissue swelling along the medial aspect of the elbow. Soft tissue swelling over the olecranon may represent olecranon bursitis. IMPRESSION: 1. Degenerative changes in the humeral ulnar joint. Avulsion of osteophytes from the olecranon. 2. There is no evidence of acute fracture.There is no evidence of malalignment or dislocation. 3. Soft tissue swelling over the olecranon may represent olecranon bursitis.
--- NOTE | 2022-07-06 13:22 | XR_ITS ---
PROCEDURE INFORMATION: Exam: XR Left Wrist Exam date and time: 07/06/2022 1:33 PM Age: 72 years old Clinical indication: Swelling; Elbow; Left; Additional info: Swollen at elbow possible bursitis -- previous injury to hand and wrist at 16 shot in hand caused deformity TECHNIQUE: Imaging protocol: Radiologic exam of the Left wrist. Views: 3 or more views. COMPARISON: CR Elbow L 07/04/2022 10:56 AM FINDINGS: Bones/joints: Severe deformity of the carpal bones and hand. Only 3 metacarpals remaining. The ulnar carpal bones are absent. There are a few Large carpal bones remaining. Degenerative changes in the radiocarpal joint and between the carpal bones and carpometacarpal joints. No definite fracture. Soft tissues: Normal. IMPRESSION: 1. Severe deformity of the carpal bones and hand. Only 3 metacarpals remaining. The ulnar carpal bones are absent. There are a few Large carpal bones remaining. Degenerative changes in the radiocarpal joint and between the carpal bones and carpometacarpal joints. 2. No definite fracture.
[2022-07-06 13:35] VITALS: BP 135/84; PULSE 69; RESP 16; TEMP 36.8; O2SAT 98; BMI 35.5
--- NOTE | 2022-07-06 13:43 | EXP.UTC ---
Discharge Plan Disposition Patient Disposition: Home, Self-Care Condition: Good Prescriptions Prescriptions: New cephalexin [cephalexin] 500 mg capsule 500 mg PO Q6H 10 Days Qty: 40 0RF mupirocin 2 % ointment 1 applic topical TID 7 Days Qty: 1 0RF methylprednisolone 4 mg Tablets,Dose Pack 4 mg PO DIRECTED Qty: 21 0RF No Action lisinopril 5 mg tablet 5 mg PO BID 90 Days Qty: 180 Label Comments: atorvastatin 40 mg tablet 40 mg PO DAILY Referrals Follow up/Referrals: Duong Devi MD [Staff Physician] - See instructions Activity Restrictions/Add. Instructions Additional Instructions/Restrictions: Rest the extremity, Wear the dora wrap for compression, Elevate the extremity as tolerated while you are resting. Follow up with Dr. Devi (orthopedics). Sometimes there can be fractures that don't show up well on the first set of x-rays. So, you should follow up if you continue to have symptoms. I put in a referral but you need to call his office and schedule an appointment. Follow up with your regular doctor. GO TO THE ER FOR ANY WORSENING SYMPTOMS Clinical Impressions Clinical Impression: Bursitis, olecranon, Cellulitis, Elbow pain, left Instructions Patient Instructions: Cellulitis, DI for Elbow Bursitis Discharge ED Provider: Merritt Ayala [facility] General Stated complaint: L arm pain Mode of Arrival: Ambulatory Source of Information: Patient Limitations: No Limitations Time Seen by Provider: 07/06/22 13:43 Description of Symptoms (Recalled from Triage Doc. by RN): HEENT Symptoms (Recalled from RN notes): No Resp Symptoms (Recalled from RN notes): No Skin Symptoms (Recalled from RN notes): No MS Symptoms (Recalled from RN notes): Yes Functional Status (Recalled from RN notes): n/a History of Present Illness Provider Complaint: He comes in with c/o left elbow still hot and swollen and hurts. pt was seen here 2 days ago for same issues and diagnosed with bursitis. He states that he would feel better having an x-ray and he is worried about his elbow being infected. Related Data Home Medications Medication Instructions Recorded Confirmed atorvastatin 40 mg tablet 40 mg PO DAILY Cholesterol 12/09/21 07/04/22 lisinopril 5 mg tablet 5 mg PO BID Hypertension 90 days 12/09/21 07/04/22 #180 tabs Previous Rx's Medication Instructions Recorded cephalexin 500 mg capsule 500 mg PO Q6H 10 days #40 caps 07/06/22 methylprednisolone 4 mg tablets in 4 mg PO DIRECTED #21 tabs 07/06/22 a dose pack mupirocin 2 % topical ointment 1 applic topical TID 7 days #1 g 07/06/22 Allergies Allergy/AdvReac Type Severity Reaction Status Date / Time amoxicillin AdvReac Intermediate extreme Verified 07/06/22 13:38 dizziness Worker's Comp Is this a Worker's Comp case?: No PFSH PFSH Medical History Hyperlipidemia Hypertension Social History Smoking Status: Never smoker alcohol intake: never substance use type: denies use current occupational status: other Travel in the last 8 weeks: None ROS Obtained: Yes All systems reviewed & no additional complaints except as documented Constitutional Constitutional: Denies chills and Denies fever(s) Integumentary/Breasts Skin/Breast: Reports redness, Denies rash and Denies wounds Neurologic Neurologic: Denies paresthesias Physical Exam General General appearance: alert and in no apparent distress Head Head exam: atraumatic, normocephalic and normal inspection Eye Eye exam: Present normal appearance, PERRL and EOMI ENT ENT exam: Present normal exam, normal oropharynx, mucous membranes moist, TM's normal bilaterally and normal external ear exam Neck Neck exam: Present normal inspection, full ROM and trachea midline; Absent meningismus or lymphadenopathy Chest Chest inspection: Present ken
[2022-07-06 14:36] VITALS: BP 135/84; PULSE 69; RESP 16; TEMP 36.8
== END 2022-07-06 14:37 | disposition home or self-care (01) ==
PROVIDERS: Emergency Provider Nurse Practitioner Family
DX: M70.22 Olecranon bursitis, left elbow; L03.114 Cellulitis of left upper limb
CPT/HCPCS: 73080; 73090; 73110; 99213; G0463

== ENCOUNTER → 2022-10-29 11:39 | Outpatient (CLI) | payer MEDICARE, OTHER, SELFPAY ==
[2022-10-29 12:20] LABS: Basophils # 0.1 K/mm3 (0-0.2); Basophils % 0.7 % (0.1-2.0); Eosinophils # 0.1 K/mm3 (0.0-0.4); Eosinophils % 1.2 % (0.1-12.0); Hematocrit 44.3 % (42.0-52.0); Hemoglobin 14.5 g/dL (14.1-18.0); Lymphocytes # 2.2 K/mm3 (0.7-4.5); Lymphocytes % 28.8 % (10-50); Mean Corpuscular HGB Conc 32.7 g/dL (31.8-35.4); Mean Corpuscular Hemoglobin 31.4 pg (27.0-31.2); Mean Corpuscular Volume 96.1 fl (80-94); Mean Platelet Volume 7.7 fl (7.4-10.4); Monocytes # 0.6 K/mm3 (0.1-1.0); Monocytes % 8.4 % (1.7-9.3); Neutrophils # 4.6 K/mm3 (1.8-7.8); Neutrophils % 60.8 % (37.0-80.0); Platelet Count 279 K/mm3 (142-424); Red Blood Count 4.61 M/mm3 (4.60-6.20); Red Cell Distribution Width 13.9 % (11.5-17.5); White Blood Count 7.6 K/mm3 (4.8-10.8)
[2022-10-29 12:40] LABS: Alanine Aminotransferase 22 U/L (12-78); Albumin Level 4.5 g/dl (3.5-5.0); Alkaline Phosphatase 120 U/L (38-126); Anion Gap 11.5 mEq/L (5-15); Aspartate Amino Transferase 29 U/L (17-59); Bilirubin,Direct 0.1 mg/dl (0.0-0.4); Bilirubin,Indirect 0.4 mg/dL (0.0-0.9); Bilirubin,Total 0.5 mg/dl (0.2-1.3); Bilirubin,Unconjugated 0.4 mg/dL (0.0-1.1); Blood Urea Nitrogen 14 mg/dl (9-20); Calcium 8.9 mg/dl (8.4-10.2); Carbon Dioxide 27 mmol/L (22.0-30.0); Chloride 102 mmol/L (98-107); Chol/HDL Ratio 3.9 (1-3.5); Cholesterol 137 mg/dl (140-200); Estimated Glomerular Filt Rate 73 ml/min (>60); GFR (African American) 89 ML/MIN (>60); Glucose 127 mg/dl (74-100); HDL Cholesterol 35 mg/dl (40-60); Magnesium 2.1 mg/dl (1.6-2.3); Potassium 4.5 mmoL/L (3.5-5.1); Sodium 136 mmol/L (136-145); Total Protein,Serum 7.5 g/dl (6.3-8.2); Triglycerides 189 mg/dl (30-150); VLDL Cholesterol 38 mg/dL (0-40)
[2022-10-29 12:58] LABS: Direct LDL Cholesterol 65.53 mg/dL (100-129)
[2022-10-29 13:10] LABS: Thyroid Stimulating Hormone 1.77 uIU/mL (0.465-4.68)
[2022-10-29 13:33] LABS: Free T4 (Free Thyroxine) 0.95 ng/dl (0.78-2.19)
== END ==
PROVIDERS: Visit Provider Nurse Practitioner
DX: E78.2 Mixed hyperlipidemia (principal); I10 Essential (primary) hypertension; I65.23 Occlusion and stenosis of bilateral carotid arteries
CPT/HCPCS: 36415; 80048; 80061; 80076; 83735; 84439; 84443; 85025

== ENCOUNTER → 2023-09-03 12:32 | Outpatient (CLI) | payer MEDICARE, OTHER, SELFPAY ==
--- NOTE | 2023-09-03 12:40 | XR_ITS ---
FINAL REPORT CLINICAL HISTORY: Left rib pain, pleurodynia COMPARISON: None FINDINGS: 3 views of the left ribs were obtained. There is no displaced, acute fracture identified. The visualized lungs are clear. No pneumothorax is identified. IMPRESSION: No displaced rib fracture or pneumothorax identified. Reviewed, Interpreted and Dictated by Jared Nolan III, MD Transcribed by Ángela Bird Authenticated and [facility]
== END ==
LOC: RAD 12:36
PROVIDERS: PCP Nurse Practitioner Family; Visit Provider Nurse Practitioner Family
DX: R07.81 Pleurodynia (principal)
CPT/HCPCS: 71101

== ENCOUNTER → 2023-10-28 10:59 | Outpatient (CLI) | payer MEDICARE, OTHER, SELFPAY ==
[2023-10-28 11:15] LABS: Basophils % 0.4 % (0.1-2.0); Eosinophils # 0.1 K/mm3 (0.0-0.4); Eosinophils % 1.1 % (0.1-12.0); Hematocrit 43.4 % (42.0-52.0); Hemoglobin 14.6 g/dL (14.1-18.0); Lymphocytes # 2.3 K/mm3 (0.7-4.5); Lymphocytes % 29.1 % (10-50); Mean Corpuscular HGB Conc 33.7 g/dL (31.8-35.4); Mean Corpuscular Hemoglobin 31.9 pg (27.0-31.2); Mean Corpuscular Volume 94.6 fl (80-94); Mean Platelet Volume 7.8 fl (7.4-10.4); Monocytes # 0.6 K/mm3 (0.1-1.0); Monocytes % 7.5 % (1.7-9.3); Neutrophils % 61.8 % (37.0-80.0); Platelet Count 216 K/mm3 (142-424); Red Blood Count 4.58 M/mm3 (4.60-6.20); Red Cell Distribution Width 13.3 % (11.5-17.5)
[2023-10-28 11:48] LABS: Alanine Aminotransferase 20 U/L (12-78); Albumin Level 4.2 g/dl (3.5-5.0); Alkaline Phosphatase 118 U/L (38-126); Anion Gap 11.2 mEq/L (5-15); Aspartate Amino Transferase 27 U/L (17-59); Bilirubin,Indirect 0.5 mg/dL (0.0-0.9); Bilirubin,Total 0.5 mg/dl (0.2-1.3); Bilirubin,Unconjugated 0.4 mg/dL (0.0-1.1); Blood Urea Nitrogen 13 mg/dl (9-20); Calcium 8.5 mg/dl (8.4-10.2); Carbon Dioxide 26 mmol/L (22.0-30.0); Chloride 102 mmol/L (98-107); Chol/HDL Ratio 4.1 (1-3.5); Cholesterol 128 mg/dl (140-200); Estimated Glomerular Filt Rate 73 ml/min (>60); GFR (African American) 89 ML/MIN (>60); Glucose 139 mg/dl (74-100); HDL Cholesterol 31 mg/dl (40-60); Potassium 4.2 mmoL/L (3.5-5.1); Sodium 135 mmol/L (136-145); Total Protein,Serum 7.3 g/dl (6.3-8.2); Triglycerides 152 mg/dl (30-150); VLDL Cholesterol 30 mg/dL (0-40)
[2023-10-28 12:04] LABS: Free T4 (Free Thyroxine) 0.92 ng/dl (0.78-2.19)
[2023-10-28 12:19] LABS: Thyroid Stimulating Hormone 2.53 uIU/mL (0.465-4.68)
== END ==
LOC: LAB 11:00
PROVIDERS: PCP Nurse Practitioner Family; Visit Provider Physician Assistant
DX: D69.59 Other secondary thrombocytopenia (principal); E78.5 Hyperlipidemia, unspecified; I10 Essential (primary) hypertension; I65.29 Occlusion and stenosis of unspecified carotid artery; R06.00 Dyspnea, unspecified; T50.905A Adverse effect of unspecified drugs, medicaments and biological substances, initial encounter
CPT/HCPCS: 36415; 80048; 80061; 80076; 83735; 84439; 84443; 85025

== ENCOUNTER 2024-11-15 07:20 | Outpatient (CLI) | payer MEDICARE, OTHER, SELFPAY ==
--- NOTE | 2024-11-15 07:22 | CT_ITS ---
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 A noncontrast coronary calcium scan was performed. A CT attenuation threshold of 130 Hounsfield units (HU) was used for the detection of calcium in contiguous voxels of 1 sq mm in area to be counted as individual lesions. Bolus tracking in the ascending aorta with a threshold of 180 HU was performed. Immediately afterwards, ECG synchronized cardiac CT was then performed from the cardiac base to apex using retrospective gating with ECG tube current modulation. A total of 85 mL of Isovue 370 mg/mL contrast medium was administered at 5 mL/sec followed by a saline flush using a biphasic injection protocol. A tube voltage of 120 KVp was used. The patient received the following medications prior to the cardiac CT. 0.8 mg of sublingual nitroglycerin The average heart rate at the time of acquisition was 68 bpm and regular. Image Reconstruction Transaxial images were reconstructed at 0.67 mm slide thickness. Data was reviewed interactively on an advanced workstation capable of 2 and 3-dimensional displays in all conventional reconstruction formats, including multiplanar reformations, maximum intensity projections, curved multiplanar reformations, and volume rendered reconstructions. When applicable, selected routine images describing the relevant coronary anatomy and pathology were saved and sent to PACS. Complications None Technical Quality Overall image quality was good. Coronary artery opacification was adequate. Total DLP (Dose-Length Product) is 1850.0 mGy-cm. The reported value represents the total of one or more individual components during the CT acquisition of this date and at this time, and as such, the same value may appear in more than one CT report depending on the interpreting/reporting physicians. COMPARISON None FINDINGS CT Coronary Calcium Scoring LMA (Left Main Artery) = 0 LAD (Left Anterior Descending) = 589 LCX (Left Coronary Circumflex) = 335 RCA (Right Coronary Artery) = 399 Total Calcium Score = 1323 using the AJ-130 method. The observed calcium score of 1323 is at 96th percentile for subjects of the same age, sex, and race/ethnicity. The interpretation of the calcium heart score is based on the following continuum*: 0 = no calcified plaque detected (risk of coronary artery disease is very low ??? less than 5%) 1-10 = calcium detected in extremely minimal levels (risk of coronary diseases is still low ??? less than 10%) 11-100 = mild levels of plaque detected with certainty (mild or minimal narrowing of heart arteries is likely) 101-400 = definite,at least moderate levels of plaque detected (relatively high risk of a heart attack within 3-5 years) >401-999 = extensive levels of plaque detected (high risk of heart attack, high levels of vascular disease are present, high likelihood of at least one significant coronary narrowing) *The calcium heart score quantifies the burden of coronary calcification/plaque in the coronary arteries. The calcium heart score is not able to evaluate the presence or burden of non-calcified (i.e. soft) plaque. There is also calcification in the transverse and descending thoracic aorta. Coronary CT Angiography The coronary arterial system is right dominant. Quantitative Stenosis Grading: Left Main (LM): The left main originates normally from the left sinus of Valsalva. The LM bifurcates into the left anterior descending artery and left circumflex artery. The LM is patent with no evidence of atherosclerosis. Left Anterior Descending (LAD) and Diagonal Branches: The LAD gives off 3 diagonal branch(es). There is calcified/noncalcified plaque in the proximal and mid LAD segments, with up to 70-90% luminal stenosis. Here is no evidence of LAD-myocardial bridge. Left Circumflex (LCX) and Obtuse Marginals (OM): The LCX gives off 2 Obtuse Marginal (OM) branch(es). There is calcified/noncalcified plaque in the proximal LCx segment, with up to 50 to 70% luminal stenosis. Right Coronary Artery (RCA): The RCA originates normally from the right sinus of Valsalva. There is mixed calcified/noncalcified plaque in the proximal and mid RCA segments, with reduced opacification distally. Findings may be suggestive of total/subtotal occlusion. Non-Coronary Cardiac Findings: Analysis of the left ventricular (LV) structure and function was performed after 3-D reconstruction of the LV from axial images, with user-corrected automatic contouring for assessment of LV volumes and user-defined reconstruction from oblique planes for measurement of 3-D cardiac structure and function. -The left ventricle systolic function is normal. -There is no left atrial appendage filling defect. Two right pulmonary veins and two left pulmonary veins drain normally into the left atrium. -No pericardial thickening or calcification. -Central and branch pulmonary arteries in the [id number] are unremarkable. -Thoracic aorta within the visualized thoracic aortic-branches in the [id number] is unremarkable. Extracardiac Structures No significant extra-cardiac findings. Note, however, that this study is focused on the cardiac findings. IMPRESSION -Extensive coronary calcification with an Agatston score = 1323 using the AJ-130 method. -The observed calcium score of 1323 is at 96th percentile for subjects of the same age, sex, and race/ethnicity. -Significant, multivessel atherosclerotic coronary disease with likely evidence of significant flow-limiting atherosclerosis of the coronary arteries and possible total/subtotal occlusion of the RCA. -CAD-RADS 5. Management recommendations per ACC/AHA guidelines*, as clinically appropriate. *Recommendations: CAD RADS 0: Reassurance. Consider non-atherosclerotic causes of chest pain. CAD RADS 1: Consider non-atherosclerotic causes of chest pain. Consider preventive therapy and risk factor modification. CAD RADS 2: Consider non-atherosclerotic causes of chest pain. Consider preventive therapy and risk factor modification, particularly for patients with nonobstructive plaque in multiple segments. CAD RADS 3: Consider further functional testing. Consider symptom-guided anti-ischemic and preventive pharmacotherapy as well as risk factor modification per published guideline statements. CAD RADS 4A: Consider further functional testing or invasive coronary angiography with revascularization per published guideline statements. Consider symptom-guided anti-ischemic and preventive pharmacotherapy as well as risk factor modification per published guideline statements. CAD RADS 4B: Invasive coronary angiography recommended with revascularization per published guideline statements. Consider symptom-guided anti-ischemic and preventive pharmacotherapy as well as risk factor modification per published guideline statements. CAD RADS 5: Consider invasive angiography and/or viability assessment with revascularization per published guideline statements. Consider symptom-guided anti-ischemic and preventive pharmacotherapy as well as risk factor modification per published guideline statements. CRITICAL RESULT None COMMUNICATION Per this written report The coronary and cardiac findings of this CCTA were reviewed, reported, and signed by Tyrone Orellana MD (Street Sprinkler) Conclusion Electronically signed by : Kimberly Orellana MD 11/22/2024 11:19:22
[2024-11-15 07:35] VITALS: BMI 28.5
[2024-11-15 07:41] VITALS: BP 136/70; PULSE 64; RESP 16; TEMP 36.6; O2SAT 98
[2024-11-15 08:03] LABS: Potassium 4.3 mmoL/L (3.5-5.1)
[2024-11-15 08:04] LABS: Anion Gap 12.3 mEq/L (5-15); Blood Urea Nitrogen 12 mg/dl (9-20); Calcium 8.9 mg/dl (8.4-10.2); Carbon Dioxide 25 mmol/L (22.0-30.0); Chloride 103 mmol/L (98-107); Creatinine Clearance Estimated 85 mL/min (50-200); Estimated Glomerular Filt Rate 82 ml/min (>60); GFR (African American) 100 ML/MIN (>60); Glucose 114 mg/dl (74-100); Sodium 136 mmol/L (136-145)
[2024-11-15 08:16] VITALS: BP 136/78; PULSE 63; RESP 16; O2SAT 96
[2024-11-15] MEDS: NITROGLYCERIN 0.4MG SL TABLET SL (08:16)
[2024-11-15 08:19] VITALS: BP 143/94; PULSE 68; RESP 16; O2SAT 93
[2024-11-15 08:22] VITALS: BP 112/69; PULSE 63; RESP 16; O2SAT 95
[2024-11-15 08:25] VITALS: BP 99/60; PULSE 68; RESP 16; O2SAT 95
[2024-11-15 08:30] VITALS: BP 104/67; PULSE 67; RESP 16; O2SAT 95
[2024-11-15] MEDS: SODIUM CHLORIDE 0.9% 10ML SYR (RAD ONLY) 10 ML IV (08:34)
[2024-11-15] MEDS: 0.9 % SODIUM CHLORIDE 50 ML VIAL IV (08:34)
[2024-11-15] MEDS: IOPAMIDOL-370 (76%);100ML BOTTLE 85 ML IV (08:34)
== END 2024-11-15 08:43 | disposition home or self-care (01) ==
PROVIDERS: PCP Nurse Practitioner Family; Visit Provider Physician Assistant
DX: R07.89 Other chest pain (principal); R06.09 Other forms of dyspnea; I10 Essential (primary) hypertension
CPT/HCPCS: 75574; 80048; Q9967

== ENCOUNTER 2024-12-07 07:50 | Day surgery (SDC) | payer MEDICARE, OTHER, SELFPAY ==
[2024-12-07] VITALS (13 sets, daily range): BP systolic 83–151; BP diastolic 42–74; PULSE 41–64; RESP 14–20; TEMP 36.9; O2SAT 92–97; BMI 28.7
--- NOTE | 2024-12-07 07:24 | IR_ITS ---
APPROVED REPORT Patient Location: Outpatient PROCEDURES Left heart catheterization Left ventriculogram Selective coronary angiogram Drug-eluting stent deployment to the ostial proximal mid and distal nondominant right coronary artery Drug-eluting stent deployment to the proximal and mid dominant circumflex artery INDICATION Coronary artery disease, Abnormal CCTA, Angina pectoris Informed consent was obtained prior to the procedure. COMPLICATIONS NONE Estimated Blood Loss: LESS THAN 10 ML TECHNIQUE One percent lidocaine used to anesthetize the right anterior aspect of the wrist. The right radial artery was accessed via the Seldinger technique. A 6 Sudanese sheath was placed in the right radial artery. 2.5 mg of Verapamil, 800 mcg of nitroglycerin, 1mg Lidocaine and 5000 U Heparin were given through the arterial sheath. The 6 Sudanese JL 3 guide catheter was also used to perform left heart catheterization, left ventriculogram and selective coronary angiogram. At the end the diagnostic angiogram therapeutic heparin was administered giving a therapeutic ACT and the guide catheter was placed in the right coronary followed by Choice PT extra-support wire placed distally. A 2.5 x 38 mm Jose Roberto frontier stent was deployed at 20 [place] in the proximal to mid right coronary reducing the stenosis. An additional 2.75 x 18 mm Jose Roberto frontier stent was placed proximal to the for stent yet still overlapping the stent and deployed at 24 [place]. The stent extending back into the right coronary cusp. There was haziness distal to the for stent which was placed therefore an additional 2.5 x 30 mm [place] frontier stent was placed distal to the first stent yet still overlapping and deployed at 20 [place]. The balloon was brought back and deployed at 24 [place] on 3 occasions to further post dilate. NAYA-3 flow was present before and after the procedure. Following this the apparatus was removed and placed into the left main artery followed by Choice PT for support wire placed in the circumflex artery. A guide liner was advanced and a 2.75 x 34 mm Jose Roberto frontier stent was placed in the proximal to mid circumflex artery at 20 [place]. 2 separate 3 mm x 12 mm noncompliant balloons were deployed at 24 [place] in the proximal and midportion artery to further reduce the calcified concentric stenosis. Excellent angiograph results were obtained with NAYA-3 flow being present before and after the procedure. The apparatus was removed the sheath was removed and hemostasis was achieved using TR banding patient was transferred to the postop putting in stable condition ANGIOGRAPHIC RESULTS The left main artery Has distal concentric 20% calcified stenosis The left anterior descending artery Has proximal 40% calcified stenosis with mid vessel 30% stenoses. A large first diagonal artery has proximal tandem 40% stenosis The circumflex artery Is large and dominant and has a proximal mostly eccentric 70 to 80% calcified stenosis The right coronary artery Is nondominant and has a proximal calcified 70% stenosis followed by an additional heavily calcified 80% eccentric stenosis with additional 50% stenosis just proximal to the RV marginal The SCHAEFER ventriculogram reveals Normal 60% The left ventricular end-diastolic pressure 15 mmHg IMPRESSION Severe to critical two-vessel coronary disease as described above Successful stenting of the ostial proximal and mid right coronary artery critical disease reduced to 0% with 3 contiguous drug-eluting stents Successful stenting the proximal to mid circumflex artery critical disease reduced to 0% with 1 drug-eluting stent Persistent moderate stenosis in the proximal LAD PLAN 1. Dual antiplatelet therapy 2. Cardiac rehabilitation 3. Avoidance of tobacco products 4. Risk factor modification 5. LDL less than 55 to be achieved with high intensity statin Electronically signed by : Neeraj Nelson MD 12/07/2024 12:31:03
[2024-12-07 08:48] LABS: Basophils % 0.5 % (0.1-2.0); Eosinophils # 0.1 K/mm3 (0.0-0.4); Eosinophils % 1.4 % (0.1-12.0); Hematocrit 37.2 % (42.0-52.0); Hemoglobin 12.8 g/dL (14.1-18.0); Lymphocytes # 1.7 K/mm3 (0.7-4.5); Lymphocytes % 26.5 % (10-50); Mean Corpuscular HGB Conc 34.4 g/dL (31.8-35.4); Mean Corpuscular Hemoglobin 32.2 pg (27.0-31.2); Mean Corpuscular Volume 93.7 fl (80-94); Mean Platelet Volume 9.3 fl (7.4-10.4); Monocytes # 0.9 K/mm3 (0.1-1.0); Monocytes % 14.1 % (1.7-9.3); Neutrophils # 3.6 K/mm3 (1.8-7.8); Neutrophils % 57.2 % (37.0-80.0); Platelet Count 126 K/mm3 (142-424); Red Blood Count 3.97 M/mm3 (4.60-6.20); Red Cell Distribution Width 12.6 % (11.5-17.5); White Blood Count 6.2 K/mm3 (4.8-10.8)
[2024-12-07 08:54] LABS: Chloride 104 mmol/L (98-107); Potassium 4.7 mmoL/L (3.5-5.1); Sodium 135 mmol/L (136-145)
[2024-12-07 08:57] LABS: Blood Urea Nitrogen 10 mg/dl (9-20); Creatinine Clearance Estimated 86 mL/min (50-200); Estimated Glomerular Filt Rate 82 ml/min (>60); GFR (African American) 100 ML/MIN (>60)
[2024-12-07 08:58] LABS: Anion Gap 8.7 mEq/L (5-15); Calcium 8.3 mg/dl (8.4-10.2); Carbon Dioxide 27 mmol/L (22.0-30.0); Glucose 110 mg/dl (74-100)
[2024-12-07] MEDS: HEPARIN 1,000 UNITS/500ML NS (CATH LAB) 3000 UNIT IV (10:53)
[2024-12-07] MEDS: MIDAZOLAM HCL 1MG/ML 5ML VIAL 1 MG IV (10:53)
[2024-12-07] MEDS: VERAPAMIL 2.5MG/ML 2ML VIAL 2.5 MG IV (10:53)
[2024-12-07] MEDS: FENTANYL 100MCG/2ML VIAL 50 MCG IV (10:53)
[2024-12-07] MEDS: diphenhydrAMINE 50MG/ML VIAL 50 MG IV (10:53)
[2024-12-07] MEDS: LIDOCAINE 1% 10ML MDV 20 ML IJ (10:53)
[2024-12-07] MEDS: NITROGLYCERIN 800MCG/8ML SYR (CATH LAB) 800 MCG IA (10:54)
[2024-12-07] MEDS: HEPARIN 1,000 UNITS/ML 10ML VIAL (CATH LAB) 10000 UNIT IV (10:54)
[2024-12-07] MEDS: CLOPIDOGREL 300MG TABLET 600 MG PO (11:19)
[2024-12-07] MEDS: IOPAMIDOL-370 (76%);100ML BOTTLE 125 ML IV (11:24)
[2024-12-07 11:29] LABS: CATHL Activated Clotting Time 363 SEC (74-125)
--- NOTE | 2024-12-07 12:04 | SUR.PHASEII ---
at bedside. ordered lunch for pt.
== END 2024-12-07 14:12 | disposition home or self-care (01) ==
PROVIDERS: PCP Nurse Practitioner Family; Visit Provider Internal Medicine
DX: I25.118 Atherosclerotic heart disease of native coronary artery with other forms of angina pectoris (principal); I10 Essential (primary) hypertension; I77.1 Stricture of artery; I65.23 Occlusion and stenosis of bilateral carotid arteries; R93.1 Abnormal findings on diagnostic imaging of heart and coronary circulation; R00.1 Bradycardia, unspecified; R06.09 Other forms of dyspnea; D69.59 Other secondary thrombocytopenia; E78.2 Mixed hyperlipidemia; Z95.5 Presence of coronary angioplasty implant and graft; Z79.899 Other long term (current) drug therapy
CPT/HCPCS: 36415; 80048; 85025; 85347; 92928; 93458; 99152; 99153; C1725; C1760; C1769; C1874; C9600; J1200; J1644; J2250; J3010; Q9967

== ENCOUNTER 2024-12-09 11:22 | Outpatient (CLI) | payer MEDICARE, OTHER, SELFPAY ==
[2024-12-09 11:48] LABS: Basophils % 0.4 % (0.1-2.0); Eosinophils # 0.1 K/mm3 (0.0-0.4); Eosinophils % 1.6 % (0.1-12.0); Hematocrit 41.7 % (42.0-52.0); Lymphocytes # 2.1 K/mm3 (0.7-4.5); Mean Corpuscular HGB Conc 33.6 g/dL (31.8-35.4); Mean Corpuscular Hemoglobin 31.8 pg (27.0-31.2); Mean Corpuscular Volume 94.8 fl (80-94); Mean Platelet Volume 9.4 fl (7.4-10.4); Monocytes # 1.1 K/mm3 (0.1-1.0); Neutrophils # 4.6 K/mm3 (1.8-7.8); Neutrophils % 57.7 % (37.0-80.0); Platelet Count 151 K/mm3 (142-424); Red Cell Distribution Width 12.7 % (11.5-17.5)
[2024-12-09 12:16] LABS: Blood Urea Nitrogen 9 mg/dl (9-20); Calcium 8.9 mg/dl (8.4-10.2); Carbon Dioxide 26 mmol/L (22.0-30.0); Chloride 99 mmol/L (98-107); Estimated Glomerular Filt Rate 94 ml/min (>60); GFR (African American) 114 ML/MIN (>60); Glucose 100 mg/dl (74-100); Sodium 135 mmol/L (136-145)
== END 2024-12-09 23:59 | disposition home or self-care (01) ==
LOC: LAB 11:24
PROVIDERS: Internal Medicine; PCP Nurse Practitioner Family; Visit Provider Physician Assistant
DX: Z95.5 Presence of coronary angioplasty implant and graft (principal); Z79.899 Other long term (current) drug therapy; D69.3 Immune thrombocytopenic purpura
CPT/HCPCS: 36415; 80048; 85025

== ENCOUNTER 2024-12-29 14:14 | Outpatient (CLI) | payer MEDICARE, OTHER, SELFPAY ==
[2024-12-29 15:51] LABS: Basophils % 0.4 % (0.1-2.0); Eosinophils # 0.1 K/mm3 (0.0-0.4); Eosinophils % 1.3 % (0.1-12.0); Hematocrit 38.6 % (42.0-52.0); Hemoglobin 13.2 g/dL (14.1-18.0); Lymphocytes # 1.7 K/mm3 (0.7-4.5); Lymphocytes % 23.5 % (10-50); Mean Corpuscular HGB Conc 34.2 g/dL (31.8-35.4); Mean Corpuscular Hemoglobin 32.4 pg (27.0-31.2); Mean Corpuscular Volume 94.6 fl (80-94); Mean Platelet Volume 9.4 fl (7.4-10.4); Monocytes # 0.8 K/mm3 (0.1-1.0); Monocytes % 11.3 % (1.7-9.3); Neutrophils # 4.4 K/mm3 (1.8-7.8); Neutrophils % 63.1 % (37.0-80.0); Platelet Count 157 K/mm3 (142-424); Red Blood Count 4.08 M/mm3 (4.60-6.20); Red Cell Distribution Width 12.7 % (11.5-17.5)
[2024-12-29 17:05] LABS: Anion Gap 9.4 mEq/L (5-15); Blood Urea Nitrogen 14 mg/dl (9-20); Calcium 8.2 mg/dl (8.4-10.2); Carbon Dioxide 25 mmol/L (22.0-30.0); Chloride 102 mmol/L (98-107); Chol/HDL Ratio 2.9 (1-3.5); Cholesterol 91 mg/dl (140-200); Estimated Glomerular Filt Rate 73 ml/min (>60); GFR (African American) 88 ML/MIN (>60); Glucose 84 mg/dl (74-100); HDL Cholesterol 31 mg/dl (40-60); Potassium 4.4 mmoL/L (3.5-5.1); Sodium 132 mmol/L (136-145); Triglycerides 103 mg/dl (30-150); VLDL Cholesterol 21 mg/dL (0-40)
[2024-12-29 17:16] LABS: Direct LDL Cholesterol 39.62 mg/dL (100-129)
== END 2024-12-29 23:59 | disposition home or self-care (01) ==
LOC: LAB 14:15
PROVIDERS: PCP Nurse Practitioner Family; Visit Provider Physician Assistant
DX: I25.10 Atherosclerotic heart disease of native coronary artery without angina pectoris (principal); Z95.5 Presence of coronary angioplasty implant and graft; R00.1 Bradycardia, unspecified; I65.23 Occlusion and stenosis of bilateral carotid arteries; D69.59 Other secondary thrombocytopenia; T50.905A Adverse effect of unspecified drugs, medicaments and biological substances, initial encounter; I10 Essential (primary) hypertension; E78.2 Mixed hyperlipidemia
CPT/HCPCS: 36415; 80048; 80061; 85025

== ENCOUNTER 2025-02-08 15:54 | Outpatient (CLI) | payer MEDICARE, OTHER, SELFPAY ==
[2025-02-08 16:36] LABS: Chloride 105 mmol/L (98-107); Potassium 4.3 mmoL/L (3.5-5.1); Sodium 137 mmol/L (136-145)
[2025-02-08 16:39] LABS: Blood Urea Nitrogen 14 mg/dl (9-20); Estimated Glomerular Filt Rate 82 ml/min (>60); GFR (African American) 100 ML/MIN (>60)
[2025-02-08 16:40] LABS: Anion Gap 10.3 mEq/L (5-15); Calcium 8.8 mg/dl (8.4-10.2); Carbon Dioxide 26 mmol/L (22.0-30.0); Glucose 89 mg/dl (74-100)
== END 2025-02-08 23:59 | disposition home or self-care (01) ==
LOC: LAB 15:55
PROVIDERS: PCP Nurse Practitioner Family; Visit Provider Physician Assistant
DX: R06.09 Other forms of dyspnea (principal); I10 Essential (primary) hypertension
CPT/HCPCS: 36415; 80048; 82565; 84520

== ENCOUNTER 2025-02-09 12:26 | Outpatient (CLI) | payer MEDICARE, OTHER, SELFPAY ==
[2025-02-09 13:14] LABS: Basophils % 0.3 % (0.1-2.0); Eosinophils # 0.1 K/mm3 (0.0-0.4); Eosinophils % 1.2 % (0.1-12.0); Hematocrit 39.8 % (42.0-52.0); Hemoglobin 13.6 g/dL (14.1-18.0); Lymphocytes % 31.1 % (10-50); Mean Corpuscular HGB Conc 34.2 g/dL (31.8-35.4); Mean Corpuscular Hemoglobin 33.2 pg (27.0-31.2); Mean Corpuscular Volume 97.1 fl (80-94); Mean Platelet Volume 9.7 fl (7.4-10.4); Monocytes # 0.9 K/mm3 (0.1-1.0); Monocytes % 13.3 % (1.7-9.3); Neutrophils # 3.5 K/mm3 (1.8-7.8); Neutrophils % 53.8 % (37.0-80.0); Nucleated Red Blood Cells # 0 10^3/uL; Nucleated Red Blood Cells % 0 %; Platelet Count 139 K/mm3 (142-424); Red Cell Distribution Width 12.5 % (11.5-17.5); Red Cell Distribution Width-SD 44.9 fL; White Blood Count 6.5 K/mm3 (4.8-10.8)
== END 2025-02-09 23:59 | disposition home or self-care (01) ==
LOC: LAB 12:29
PROVIDERS: PCP Nurse Practitioner Family; Visit Provider Physician Assistant
DX: I25.10 Atherosclerotic heart disease of native coronary artery without angina pectoris (principal)
CPT/HCPCS: 36415; 85025

== ENCOUNTER 2025-02-19 12:08 | Outpatient (CLI) | payer MEDICARE, OTHER, SELFPAY ==
[2025-02-19 12:24] LABS: Basophils % 0.3 % (0.1-2.0); Eosinophils # 0.1 Kmm3 (0.0-0.4); Eosinophils % 1.1 % (0.1-12.0); Hematocrit 39.5 % (42.0-52.0); Hemoglobin 13.5 g/dL (14.1-18.0); Lymphocytes % 30.2 % (10-50); Mean Corpuscular HGB Conc 34.2 g/dL (31.8-35.4); Mean Corpuscular Hemoglobin 32.9 pg (27.0-31.2); Mean Corpuscular Volume 96.3 fl (80-94); Mean Platelet Volume 9.2 fl (7.4-10.4); Monocytes # 0.7 K/mm3 (0.1-1.0); Monocytes % 10.9 % (1.7-9.3); Neutrophils # 3.8 K/mm3 (1.8-7.8); Nucleated Red Blood Cells # 0 10^3/uL; Nucleated Red Blood Cells % 0 %; Platelet Count 151 K/mm3 (142-424); Red Cell Distribution Width 12.5 % (11.5-17.5); Red Cell Distribution Width-SD 44.7 fL; White Blood Count 6.6 K/mm3 (4.8-10.8)
== END 2025-02-19 23:59 | disposition home or self-care (01) ==
LOC: LAB 12:09
PROVIDERS: PCP Nurse Practitioner Family; Visit Provider Physician Assistant
DX: D69.6 Thrombocytopenia, unspecified (principal); I25.10 Atherosclerotic heart disease of native coronary artery without angina pectoris
CPT/HCPCS: 36415; 85025

== ENCOUNTER 2025-03-12 15:37 | Outpatient (CLI) | payer MEDICARE, OTHER, SELFPAY ==
[2025-03-12 15:59] LABS: Basophils % 0.6 % (0.1-2.0); Eosinophils # 0.1 Kmm3 (0.0-0.4); Eosinophils % 1.4 % (0.1-12.0); Hematocrit 39.4 % (42.0-52.0); Hemoglobin 13.7 g/dL (14.1-18.0); Immature Granulocytes # 0.01 10^3uL; Immature Granulocytes % 0.1 %; Lymphocytes # 2.1 K/mm3 (0.7-4.5); Lymphocytes % 30.2 % (10-50); Mean Corpuscular HGB Conc 34.8 g/dL (31.8-35.4); Mean Corpuscular Hemoglobin 33.7 pg (27.0-31.2); Mean Platelet Volume 9.1 fl (7.4-10.4); Neutrophils # 3.8 K/mm3 (1.8-7.8); Neutrophils % 53.7 % (37.0-80.0); Nucleated Red Blood Cells # 0 10^3/uL; Nucleated Red Blood Cells % 0 %; Platelet Count 146 K/mm3 (142-424); Red Blood Count 4.06 M/mm3 (4.60-6.20); Red Cell Distribution Width 12.8 % (11.5-17.5); Red Cell Distribution Width-SD 46.1 fL
== END 2025-03-12 23:59 | disposition home or self-care (01) ==
LOC: LAB 15:39
PROVIDERS: PCP Nurse Practitioner Family; Visit Provider Physician Assistant
DX: D69.3 Immune thrombocytopenic purpura (principal)
CPT/HCPCS: 36415; 85025

== ENCOUNTER 2025-03-30 13:09 | Outpatient (CLI) | payer MEDICARE, OTHER, SELFPAY ==
[2025-03-30 14:18] LABS: Basophils % 0.4 % (0.1-2.0); Eosinophils # 0.1 Kmm3 (0.0-0.4); Eosinophils % 1.2 % (0.1-12.0); Hematocrit 40.4 % (42.0-52.0); Hemoglobin 13.5 g/dL (14.1-18.0); Immature Granulocytes # 0.04 10^3uL; Immature Granulocytes % 0.6 %; Lymphocytes # 2.3 K/mm3 (0.7-4.5); Lymphocytes % 33.9 % (10-50); Mean Corpuscular HGB Conc 33.4 g/dL (31.8-35.4); Mean Corpuscular Hemoglobin 32.1 pg (27.0-31.2); Mean Platelet Volume 8.9 fl (7.4-10.4); Monocytes # 0.8 K/mm3 (0.1-1.0); Monocytes % 11.6 % (1.7-9.3); Neutrophils # 3.6 K/mm3 (1.8-7.8); Neutrophils % 52.3 % (37.0-80.0); Nucleated Red Blood Cells # 0 10^3/uL; Nucleated Red Blood Cells % 0 %; Platelet Count 161 K/mm3 (142-424); Red Blood Count 4.21 M/mm3 (4.60-6.20); Red Cell Distribution Width 12.4 % (11.5-17.5); Red Cell Distribution Width-SD 43.8 fL; White Blood Count 6.8 K/mm3 (4.8-10.8)
== END 2025-03-30 23:59 | disposition home or self-care (01) ==
LOC: LAB 13:10
PROVIDERS: Internal Medicine; PCP Nurse Practitioner Family; Visit Provider Physician Assistant
DX: D63.8 Anemia in other chronic diseases classified elsewhere (principal)
CPT/HCPCS: 36415; 85025

== ENCOUNTER 2025-05-10 15:33 | Outpatient (CLI) | payer MEDICARE, OTHER, SELFPAY ==
--- OUTSIDE RECORDS SUMMARY | 2025-05-10 15:38 | XMS_ITS | Data Portability ---
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 Plan of Treatment Reminders Order Date Submit Date Provider Last Modified By Organization Details Last Modified Time Details Appointments None record ed. Lab None record ed. Referral None record ed. Procedures None record ed. Surgeries None record ed. Imaging None record ed. Medication Orders None record ed. Patient TargetsNo targets recorded. Patient Instructions Encounter Date Encounter Id Patient Instructions Last Modified By Organization Details Last Modified Time 09/04/2022 [id number] 1-Cleaned hearin g aids. 2-F/u prn. [email or web address] Not available 09/04/2022 09:56:28 Reason for Referral None Reported. Problems Name Problem SNOMED Code Status Onset Date Resolution Date Notes Provider Name and Address Organization Details Recorded Time Asymmetrical sensorineural hearing loss 434217214 Active 2021 SANDY HOOKER [address] [place], [address] , [facility] & [place] 2 10:38:00 Sensorineural hearing loss 74156874 Active 2022 SANDY HOOKER [address] [place], [address] , [facility] & [place] 3 14:30:51 Problem Notes None recorded. Medical Equipment None Reported. Allergies No known drug allergies Medications Name Sig Start Date Stop Date Status Note LastModified by Organization Details LastModified Time atorvastatin 40 mg tablet active Not Available Not Available Not Available prednisone 10 mg tablet TAKE 1 TABLET BY MOUTH TWICE DAILY FOR 5 DAYS active Not Available Not Available No t Available azithromycin 250 mg tablet TAKE 2 TABLETS BY MOUTH ON DAY 1, AND THEN TAKE 1 TABLET BY MOUTH ONCE A DAY ON DAY 2 THROUGH DAY 5 active Not Available Not Available No t Available hydrocodone 5 mg-acetaminop hen 325 mg tablet active Not Available Not Available Not Available meclizine 12.5 mg tablet TAKE 1 TABLET BY MOUTH EVERY 8 HOURS NEEDED FOR DIZZINESS active Not Available Not Available No t Available amoxicillin 875 mg tablet active Not Available Not Availabl e Not Available cephalexin 500 mg capsule TAKE 1 CAPSULE BY MOUTH EVERY 6 HOURS FOR 10 DAYS active Not Available Not Available No t Available lisinopril 5 mg tablet active Not Available Not Available No t Available mupirocin 2 % topical ointment APPLY OINTMENT TOPICALLY TO AFFECTED AREA THREE TIMES DAILY FOR 7 DAYS active Not Available Not Available No t Available methylprednis olone 4 mg tablets in a dose pack TAKE BY MOUTH DIRECTED ON INSIDE OF PACKAGE active Not Available Not Available N ot Available gentamicin 0.1 % topical ointment active Not Available Not Available Not Available Vitals None Recorded Social History None recorded. Functional Status None recorded. Mental Status None recorded. Family History Nothing Reported. Medical History No medical history recorded. Past Encounters Encounter ID Performer Location Encounter Start Date Encounter Closed Date Diagnosis/Indication Diagnosis SNOMED-CT Code Diagnosis ICD10 Code Diagnosis Note [id number] SANDY HOOKER [facility] [place] [address] 09/04/2022 09:42:27 09/04/2022 09:54:51 Sensorineural hearing loss 36789274 H90.3 [id number] SANDY HOOKER [facility] [place] [id number] [address] [facility] [address] 09/08/2022 09:30:07 09/08/2022 10:06:56 Asymmetrical sensorineural hearing loss 351761418 H90.5 [id number] SANDY HOOKER [facility] [address] [place] [address] 12/21/2022 14:26:13 12/21/2022 14:31:22 Sensorineural hearing loss 79689786 H90.3 Health Concerns Section Related Observation LastModified by Organization Detai ls LastModified Time None Recorded Concern Status LastModified by Organization Details LastModified Time None Recorded Advance Directives Directive None Recorded Payers Insurance Date Sequence Insurance Name Policy Number Policy Loco Covered Member ID Loco Member ID Guarantor Name 05/20/2024 1 [place] Petar Acosta [id number] Petar Acosta 05/20/2024 2 [employer] (MEDICARE SUPPLEMENT) Petar Acosta [id number] Petar Acosta 05/20/2024 1 [place] Petar Acosta [id number] Petar Acosta 05/20/2024 2 [employer] (MEDICARE SUPPLEMENT) Petar Acosta [id number] Petar Acosta 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 Acosta was se en today for a hearing aid service. HAYLEY BERUMEN, SANDY [address] [facility] [address], [place], [address], [facility] 09/04/2022 09:56:42 09/08/2022 text/html Mr. Acosta was se en today for an annual audiologic evaluation due to long-standing asymmetrical hearing loss (R worse than L). Mr. Acosta reports that his hearing declined suddenly in the RE nearly two years ago while he had Covid-19. He reports that his hearing in the LE is good, but it has declined over time . 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 Otoscopic inspection was unremarkable bilaterally. HAYLEY BERUMEN, SANDY [address] , [place], [address], [facility] 09/08/2022 10:39:13 12/21/2022 text/html Mr. Acosta was se en today for a hearing aid service. SANDY HOOKER [address] , [place], [address], [place] - [facility] [place] & [place] 12/21/2022 14:31:17
--- OUTSIDE RECORDS SUMMARY | 2025-05-10 15:38 | XMS_ITS | Data Portability ---
Author Organization [facility] Address [address] [place] [address] Assessment Encounter Date Assessment Date Assessment LastModified by Organization Details LastModified Time 05/16/2024 05/16/2024 Medicare Preventive Services Check List reviewed and printed for patient. blair Not available 05/16/2024 08:52:02 Plan of Treatment Reminders Order Date Submit Date Provider Last Modified By Organization Details Last Modified Time Details Appointments None recorded. Lab rapid strep group A, throat 2024 025 [facility], [address] [place] [address], [id number], 5 16:31:55 rapid flu (A+B) 2024 025 [facility], [address] [place] [address], [phone], 5 16:31:55 rapid SARS CoV + SARS CoV 2 Ag, QL IA, respiratory specimen 2024 025 [facility], [address] [place] [address], [address], 5 16:31:55 HbA1c (hemoglobin A1c), blood 2023 024 blair [facility], [address] [place] [address], [phone], 4 11:28:28 CBC w/ auto diff 2023 024 [facility], [address], [address], [place], [address], 4 00:06:32 CMP, serum or plasma 2023 024 [facility], [address], [place] [address], [place], [address], 4 00:06:34 lipid panel, serum 2023 024 [facility], [address], [place] [address], [place], [address], 4 00:06:36 testosteron e, free + total, serum 2023 024 [facility], [address], [place] [address], [place], [address], 4 00:06:38 vitamin B12 + folate, serum or blood 2023 024 [facility], [address], [place] [address], [place], [address], 4 00:06:37 TSH + free T4, serum 2023 024 [facility], [address], [place] [address], [place], [address], 4 00:06:30 HbA1c (hemoglobin A1c), blood 2023 024 blair [facility], [address], [place] [address], [place], [address], 4 16:18:12 PSA, serum or plasma 2023 024 [facility], [address], [place], [place], [address], 4 00:06:38 vitamin D, 25-hydroxy, total, serum 2023 024 [facility], [address], [place] [address], [place], [address], 5 16:51:13 Referral None recorded. Procedures None recorded. Surgeries None recorded. Imaging XR, ribs, unilateral, w/ PA chest 2022 023 [facility] (X-[facility]), [address] [place] [address] [address], [place], [address], 3 14:27:19 electrocard iogram 2022 023 [facility], [address] [facility], [place], [address], 3 18:19:02 Medication Orders cyclobenzap rine 5 mg tablet [address] [facility], [facility] [address], [id number], 5 15:17:17 prednisone 10 mg tablet 2022 023 [facility], [address], [id number], 3 10:53:01 Patient TargetsNo targets recorded. Patient Instructions Encounter Date Encounter Id Patient Instructions Last Modified By Organization Details Last Modified Time 05/16/2024 [id number] advance directives: care instructions efryman Not available 05/16/2024 09:31:53 learning about depression efryman Not available 05/16/2024 09:31:53 preventing falls : care instructions efryman Not available 05/16/2024 09:31:53 medicare preventive services guide efryman Not available 05/16/2024 09:31:53 learning about healthy weight efryman Not available 05/16/2024 09:31:53 Learning About Being Physically Active efryman Not available 05/16/2024 09:31:53 12/12/2024 [id number] sore throat in children: care instructions barbra Not available 12/12/2024 16:31:55 Reason for Referral None Reported. Results Created Date Observation Date Name Description Value Unit Range Abnormal Flag Note LastModifiedBy Organization Detail LastModifiedTime 05/16/2005/17/2024 TSH+F REE T4 TSH 2.740 uIU/m L 0.450- 4.500 Not Available [facility] ([facility]) [address] [place], [address], 05/19/2024 00:06:29 05/16/2005/17/2024 TSH+F REE T4 T4,free(dire ct) 1.32 NG/dL 0.82-1 .77 Not Available [facility] ([facility]) [address] [place], [address], 05/19/2024 00:06:29 05/16/20 24 05/17/2024 CBC WITH DIFFE RENTI AL/PL ATELE T WBC 7.1 x10e3 /uL 3.4-10 .8 Not Available [facility] ([facility]) [address] [place], [address], 05/19/2024 00:06:32 05/16/20 24 05/17/2024 CBC WITH DIFFE RENTI AL/PL ATELE T RBC 4.40 x10e6 /uL 4.14-5 .80 Not Available [facility] ([facility]) [address] [place], [address], 05/19/2024 00:06:32 05/16/20 24 05/17/2024 CBC WITH DIFFE RENTI AL/PL ATELE T hemoglobin 14.0 g/dL 13.0-1 7.7 Not Available [facility] ([facility]) [address] [place], [address], 05/19/2024 00:06:32 05/16/20 24 05/17/2024 CBC WITH DIFFE RENTI AL/PL ATELE T hematocrit 41.0 % 37.5-5 1.0 Not Available [facility] ([facility]) [address] [facility], [place], [address], 05/19/2024 00:06:32 05/16/20 24 05/17/2024 CBC WITH DIFFE RENTI AL/PL ATELE T MCV 93 fL 79-97 Not Available [facility] ([facility]) [address] [facility], [place], [address], 05/19/2024 00:06:32 05/16/2005/17/2024 CBC WITH DIFFE RENTI AL/PL ATELE T MCH 31.8 pg 26.6-3 3.0 Not Available [facility] ([facility]) [address] [facility], [place], [address], 05/19/2024 00:06:32 05/16/20 24 05/17/2024 CBC WITH DIFFE RENTI AL/PL ATELE T MCHC 34.1 g/dL 31.5-3 5.7 Not Available [facility] ([facility]) [address] [facility], [place], [address], 05/19/2024 00:06:32 05/16/20 24 05/17/2024 CBC WITH DIFFE RENTI AL/PL ATELE T RDW 12.8 % 11.6-1 5.4 Not Available [facility] ([facility]) [address] [facility], [place], [address], 05/19/2024 00:06:32 05/16/20 24 05/17/2024 CBC WITH DIFFE RENTI AL/PL ATELE T platelets 220 x10e3 /uL 150-45 0 Not Available [facility] ([facility]) [address] [facility], [place], [address], 05/19/2024 00:06:32 05/16/20 24 05/17/2024 CBC WITH DIFFE RENTI AL/PL ATELE T neutrophils 61 % not estab. Not Available [facility] ([facility]) [address] [facility], [place], [address], 05/19/2024 00:06:32 05/16/20 24 05/17/2024 CBC WITH DIFFE RENTI AL/PL ATELE T lymphs 29 % not estab. Not Available [facility] ([facility]) [address] [facility], [place], [address], 05/19/2024 00:06:32 05/16/20 24 05/17/2024 CBC WITH DIFFE RENTI AL/PL ATELE T monocytes 9 % not estab. Not Available [facility] ([facility]) [address] [facility], [place], [address], 05/19/2024 00:06:32 05/16/20 24 05/17/2024 CBC WITH DIFFE RENTI AL/PL ATELE T eos 1 % not estab. Not Available [facility] ([facility]) [address] [facility], [place], [address], 05/19/2024 00:06:32 05/16/20 24 05/17/2024 CBC WITH DIFFE RENTI AL/PL ATELE T basos 0 % not estab. 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 0 Not Available [facility] ([facility]) [address] [facility], [place], [address], 05/19/2024 00:06:32 05/16/20 24 05/17/2024 CBC WITH DIFFE RENTI AL/PL ATELE T lymphs (absolute) 2.1 x10e3 /uL 0.7-3. 1 Not Available [facility] ([facility]) [address] [facility], [place], [address], 05/19/2024 00:06:32 05/16/20 24 05/17/2024 CBC WITH DIFFE RENTI AL/PL ATELE T monocytes(ab solute) 0.6 x10e3 /uL 0.1-0. 9 Not Available [facility] ([facility]) [address] [facility], [place], [address], 05/19/2024 00:06:32 05/16/20 24 05/17/2024 CBC WITH DIFFE RENTI AL/PL ATELE T eos (absolute) 0.1 x10e3 /uL 0.0-0. 4 Not Available [facility] ([facility]) [address] [facility], [place], [address], 05/19/2024 00:06:32 05/16/20 24 05/17/2024 CBC WITH DIFFE RENTI AL/PL ATELE T baso (absolute) 0.0 x10e3 /uL 0.0-0. 2 Not Available [facility] ([facility]) [address] [facility], [place], [address], 05/19/2024 00:06:32 05/16/20 24 05/17/2024 CBC WITH DIFFE RENTI AL/PL ATELE T immature granulocytes 0 % not estab. Not Available [facility] ([facility]) [address] [facility], [place], [address], 05/19/2024 00:06:32 05/16/20 24 05/17/2024 CBC WITH DIFFE RENTI AL/PL ATELE T immature grans (abs) 0.0 x10e3 /uL 0.0-0. 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 METAB OLIC PANEL (14) glucose 115 mg/dL 70-99 above high normal Not Available [facility] ([facility]) [address] [facility], [place], [address], 05/19/2024 00:06:34 05/16/20 24 05/17/2024 COMP. METAB OLIC PANEL (14) BUN 12 mg/dL 8-27 Not Available [facility] ([facility]) [address] [facility] [place], [address], 05/19/2024 00:06:34 05/16/20 24 05/17/2024 COMP. METAB OLIC PANEL (14) creatinine 0.95 mg/dL 0.76-1 .27 Not Available [facility] ([facility]) [address] [facility] [place], [address], 05/19/2024 00:06:34 05/16/20 24 05/17/2024 COMP. METAB OLIC PANEL (14) eGFR 85 mL/mi n/1.7 3 >59 Not Available [facility] ([facility]) [address] [facility] [place], [address], 05/19/2024 00:06:34 05/16/20 24 05/17/2024 COMP. METAB OLIC PANEL (14) BUN/creatini ne ratio 13 10-24 Not Available [facility] ([facility]) [address], [place], [address], 05/19/2024 00:06:34 05/16/20 24 05/17/2024 COMP. METAB OLIC PANEL (14) sodium 136 mmol/ L 134-14 4 Not Available [facility] ([facility]) [address], [place], [address], 05/19/2024 00:06:34 05/16/20 24 05/17/2024 COMP. METAB OLIC PANEL (14) potassium 4.4 mmol/ L 3.5-5. 2 Not Available [facility] ([facility]) [address], [place], [address], 05/19/2024 00:06:34 05/16/20 24 05/17/2024 COMP. METAB OLIC PANEL (14) chloride 102 mmol/ L 96-106 Not Available [facility] ([facility]) [address], [place], [address], 05/19/2024 00:06:34 05/16/20 24 05/17/2024 COMP. METAB OLIC PANEL (14) carbon dioxide, total 22 mmol/ L 20-29 Not Available [facility] ([facility]) [address], [place], [address], 05/19/2024 00:06:34 05/16/20 24 05/17/2024 COMP. METAB OLIC PANEL (14) calcium 9.0 mg/dL 8.6-10 .2 Not Available [facility] ([facility]) [address], [place], [address], 05/19/2024 00:06:34 05/16/20 24 05/17/2024 COMP. METAB OLIC PANEL (14) protein, total 7.0 g/dL 6.0-8. 5 Not Available [facility] ([facility]) [address] [facility] [place], [address], 05/19/2024 00:06:34 05/16/20 24 05/17/2024 COMP. METAB OLIC PANEL (14) albumin 4.1 g/dL 3.8-4. 8 Not Available [facility] ([facility]) [address] [facility], [place], [address], 05/19/2024 00:06:34 05/16/20 24 05/17/2024 COMP. METAB OLIC PANEL (14) globulin, total 2.9 g/dL 1.5-4. 5 Not Available [facility] ([facility]) [address] [facility], [place], [address], 05/19/2024 00:06:34 05/16/20 24 05/17/2024 COMP. METAB OLIC PANEL (14) bilirubin, total 0.5 mg/dL 0.0-1. 2 Not Available [facility] ([facility]) [address] [facility] [place], [address], 05/19/2024 00:06:34 05/16/20 24 05/17/2024 COMP. METAB OLIC PANEL (14) alkaline phosphatase 135 IU/L 44-121 above high normal Not Available [facility] ([facility]) [address] [facility] [place], [address], 05/19/2024 00:06:34 05/16/20 24 05/17/2024 COMP. METAB OLIC PANEL (14) AST (SGOT) 61 IU/L 0-40 above high normal Not Available [facility] ([facility]) [address] [facility] [place], [address], 05/19/2024 00:06:34 05/16/20 24 05/17/2024 COMP. METAB OLIC PANEL (14) ALT (SGPT) 70 IU/L 0-44 above high normal Not Available [facility] ([facility]) [address] [place], [address], 05/19/2024 00:06:34 05/16/20 24 05/17/2024 LIPID PANEL cholesterol, total 110 mg/dL 100-19 9 Not Available [facility] ([facility]) [address] [place], [address], 05/19/2024 00:06:36 05/16/20 24 05/17/2024 LIPID PANEL triglyceride s 120 mg/dL 0-149 Not Available [facility] ([facility]) [address] [place], [address], 05/19/2024 00:06:36 05/16/20 24 05/17/2024 LIPID PANEL HDL cholesterol 31 mg/dL >39 below low normal Not Available [facility] ([facility]) [address] [place], [address], 05/19/2024 00:06:36 05/16/20 24 05/17/2024 LIPID PANEL VLDL cholesterol to 22 mg/dL 5-40 Not Available [facility] ([facility]) [address] [place], [address], 05/19/2024 00:06:36 05/16/20 24 05/17/2024 LIPID PANEL LDL chol calc ([facility]) 57 mg/dL 0-99 Not Available [facility] ([facility]) [address] [place], [address], 05/19/2024 00:06:36 05/16/20 24 05/17/2024 LIPID PANEL LDL calc comment: 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 Not Available [facility] ([facility]) [address] [place], [address], 05/19/2024 00:06:37 05/16/20 24 05/17/2024 TESTO STERO NE,FR EE AND TOTAL testosterone 297 NG/dL 264-91 6 Adult male refer ence inter amari is based on a popul ation of healt hy nonob basim males (BMI <30) betwe en 19 and 39 years old. Kathy briceño et.al . JCEM 2017, 102;1 161-1 173. PMID: 20392 103. Not Available [facility] ([facility]) [address] [facility], [place], [address], 05/19/2024 00:06:38 05/16/20 24 05/18/2024 TESTO STERO NE,FR EE AND TOTAL free testosterone (direct) 1.3 pg/mL 6.6-18 .1 below low normal Not Available [facility] ([facility]) [address] [facility], [place], [address], 05/19/2024 00:06:38 05/16/20 24 05/17/2024 PSA TOTAL (REFL EX TO FREE) prostate specific Ag 0.7 NG/mL 0.0-4. 0 Ashley ECLIA metho dolog y. Accor nancy to the Ameri can Urolo gical Assoc iatio n, Serum PSA shoul d decre ase and remai n at undet ectab le level s after radic al prost atect henry. The AUA defin es bioch emica l recur rence as an initi al PSA value 0.2 ng/mL or great er follo wed by a subse quent confi rmato ry PSA value 0.2 ng/mL or great er. Value s obtai brian with diffe rent assay metho ds or kits canno t be used inter zapata eably . Resul ts canno t be inter prete d as absol [place] evide nce of the prese nce or absen ce of hilda ray disea se. Not Available [facility] ([facility]) [address] [facility], [place], [address], 05/19/2024 00:06:38 05/16/20 24 05/17/2024 PSA TOTAL (REFL EX TO FREE) reflex criteria Commen t The perce nt free PSA is perfo rmed on a refle x basis only when the total PSA is betwe en 4.0 and 10.0 ng/mL . Not Available [facility] ([facility]) [address] [facility], [place], [address], 05/19/2024 00:06:38 05/16/20 24 05/17/2024 HEMOG LOBIN A1C hemoglobin A1C 6.4 % 4.8-5. 6 above high normal Predi abete s: 5.7 - 6.4 Diabe luke: >6.4 Glyce ruchi contr ol for adult s with diabe luke: <7.0 Not Available [facility] ([facility]) [address] [facility], [place], [address], 05/19/2024 00:06:40 05/16/20 24 05/17/2024 VITAM IN D, 25-HY DROXY vitamin D, 25-hydroxy 32.3 NG/mL 30.0-1 00.0 Vitam in D defic iency has been defin ed by the Insti tute of Medic ine and an Endoc rine Socie ty pract ice guide line as a level of serum 25-OH vitam in D less than 20 ng/mL (1,2) . The Endoc rine Socie ty went on to furth er defin e vitam in D insuf ficie ncy as a level betwe en 21 and 29 ng/mL (2). 1. IOM (Inst itute of Medic ine). 2010. Dieta ry refer ence intak es for calci um and D. Marguerite lu [place]: [facility] . 2. Pedro Pablo k MF, Binkl ey [place], Aishwarya off-F errar i YUEN, et al. Evalu ation , treat ment, and preve ntion of vitam in D defic iency : an Endoc rine Socie ty clini to pract ice guide line. JCEM. 2010; 96(7) :1911 -30. Not Available [facility] ([facility]) [address] [facility], [place], [address], 05/19/2024 00:06:41 09/15/20 24 09/15/2024 HbA1c (hemo globi n A1c), blood HbA1C 6.0 % Not Available [address], [address], 09/15/2024 10:31:29 12/12/19 25 12/12/2024 rapid SARS CoV + SARS CoV 2 Ag, QL IA, respi rator y speci men SARS CoV antigen Negati ve Not Available [address], [address], 12/12/2024 15:41:58 12/12/19 25 12/12/2024 rapid flu (A+B) Flu negati ve Not Available [address], [address], 12/12/2024 15:41:50 12/12/19 25 12/12/2024 rapid flu (A+B) Type Both A & B Not Available [address], [address], 12/12/2024 15:41:50 12/12/19 25 12/12/2024 rapid strep group A, throa t Strep negati ve Not Available [address], [address], 12/12/2024 15:14:58 12/12/19 25 12/12/2024 rapid strep group A, throa t Culture No Not Available [address], [address], 12/12/2024 15:14:58 03/30/20 23 03/30/2023 elect rocar diogr am No observ ation record ed. [address], [address], 03/30/2023 18:19:03 04/05/20 23 03/30/2023 elect rocar diogr am No observ ation record ed. [facility] [address], [address], 04/05/2023 11:09:26 09/03/20 23 09/03/2023 XR, ribs, unila teral , w/ PA chest No observ ation record ed. [address], [place], [address], 09/03/2023 15:23:17 11/22/19 25 11/15/2024 CT, angio gram, coron abdirizak arter ies, w/ contr ast No observ ation record ed. [facility] [address], [place], [address], 11/23/2024 08:27:35 Result Notes None recorded. Problems Name Problem SNOMED Code Status Onset Date Resolution Date Notes Provider Name and Address Organization Details Recorded Time Hypertensiv e disorder 54129963 Active NOE Cao - [facility] 3 14:37:07 Hyperlipide momo 67193084 Active NOE Cao - [facility] 3 14:37:19 Hearing loss 25743920 Active Thinks hearing loss was caused by covid-19 NOE Cao - [facility] 3 14:39:34 Type 2 diabetes mellitus 43041214 Active 2023 Lola Cohen, [employer] [address], [place], [address] , [place] - [facility] 4 17:03:32 Alkaline phosphatase above reference range 891324940 Active 2023 Lola Cohen, [employer] [address], [place], [address] , [place] - [facility] 4 17:05:10 Liver enzymes level above reference range 615940201 Active 2023 Lola Cohen, [employer] [address], [place], [address] , [place] - [facility] 4 17:06:13 Problem Notes None recorded. Procedures Surgical History Date Name Laterality Status Provider Name and Address Organization Details Recorded Time 4 Advance Care Planning completed Dahiana LIU - [facility] 05/16/2024 08:52:03 4 Functional Status Assessed completed Dahiana Seymour [facility] 05/16/2024 08:52:03 Imaging Results None recorded. Procedure Notes None recorded. Medical Equipment None Reported. Allergies No known drug allergies Medications Name Sig Start Date Stop Date Status Note LastModified by Organization Details LastModified Time cyclobenzap rine 10 mg tablet 11/05 completed Not Available Not Available Not Available atorvastati n 40 mg tablet Take 1 tablet every day by oral route for 90 days. active Not Available Not Available No t Available prednisone 10 mg tablet Take 1 tablet twice a day by oral route for 5 days. 09/03 completed Not Available Not Available Not Available atorvastati n 10 mg tablet 11/05 completed Not Available Not Available Not Available azithromyci n 250 mg tablet TAKE 2 TABLETS BY MOUTH ON DAY 1, AND THEN TAKE 1 TABLET BY MOUTH ONCE A DAY ON DAY 2 THROUGH DAY 5 11/05 completed Not Available Not Available Not Available hydrocodone 5 mg-acetamin ophen 325 mg tablet 11/05 completed Not Available Not Available Not Available prednisone 20 mg tablet 11/05 completed Not Available Not Available Not Available meclizine 12.5 mg tablet TAKE 1 TABLET BY MOUTH EVERY 8 HOURS NEEDED FOR DIZZINESS 11/05 completed Not Available Not Available Not Available Plavix 75 mg tablet Take 1 tablet every day by oral route. active Not Available Not Available No t Available ciprofloxac in 500 mg tablet 11/05 completed Not Available Not Available Not Available amoxicillin 875 mg tablet 11/05 completed Not Available Not Available Not Available cephalexin 500 mg capsule TAKE 1 CAPSULE BY MOUTH EVERY 6 HOURS FOR 10 DAYS 11/05 completed Not Available Not Available Not Available aspirin 81 mg chewable tablet Chew 1 tablet every day by oral route. active Not Available Not Available No t Available lisinopril 5 mg tablet Take 1 tablet twice a day by oral route for 90 days. active Not Available Not Available No t Available mupirocin 2 % topical ointment APPLY OINTMENT TOPICALLY TO AFFECTED AREA THREE TIMES DAILY FOR 7 DAYS 11/05 completed Not Available Not Available Not Available metoprolol succinate ER 25 mg tablet,exte nded release 24 hr Take 1 tablet every day by oral route. active Not Available Not Available No t Available methylpredn isolone 4 mg tablets in a dose pack TAKE BY MOUTH DIRECTED ON INSIDE OF PACKAGE 11/05 completed Not Available Not Available Not Available gentamicin 0.1 % topical ointment 11/05 completed Not Available Not Available Not Available cyclobenzap rine 5 mg tablet Take 1 tablet as needed by oral route at bedtime for 5 days. 12/12 completed Not Available Not Available Not Available Vitals Date Recorded Body height Heart rate Body temperature Body mass index (BMI) Body weight Oxygen saturation Oxygen saturation in Arterial blood by Pulse oximetry Respiratory rate Systolic And Diastolic Provider Name and Address Organization Details Last Updated DateTime 5 180.34 cm 68 /min 97.3 [degF] 28.7 kg/m2 59491.0 3 g 100 % 100 % 18 /min 110/68 mm[Hg] Dahiana Seymour [place] - [facility] 5 15:17:26 Date Recorded Body weight Body mass index (BMI) Body height Heart rate Oxygen saturation Oxygen saturation in Arterial blood by Pulse oximetry Respiratory rate Body temperature Systolic And Diastolic Provider Name and Address Organization Details Last Updated DateTime 3 38827.4 4 g 28.6 kg/m2 180.34 cm 64 /min 95 % 95 % 18 /min 97.6 [degF] 132/68 mm[Hg] Hayley Manceranavarro [place] - [facility] 3 17:25:53 Date Recorded Body height Body mass index (BMI) Body weight Body temperature Heart rate Oxygen saturation Oxygen saturation in Arterial blood by Pulse oximetry Respiratory rate Systolic And Diastolic Provider Name and Address Organization Details Last Updated DateTime 4 180.34 cm 27.9 kg/m2 80659.4 7 g 97 [degF] 60 /min 97 % 97 % 20 /min 124/78 mm[Hg] Dahiana Seymour [place] [facility] 4 08:54:30 Date Recorded Body height Body mass index (BMI) Body weight Body temperature Heart rate Oxygen saturation Oxygen saturation in Arterial blood by Pulse oximetry Respiratory rate Systolic And Diastolic Provider Name and Address Organization Details Last Updated DateTime 3 180.34 cm 28.7 kg/m2 77294.7 3 g 98.1 [degF] 55 /min 96 % 96 % 18 /min 117/72 mm[Hg] Dahiana Lion [place] [facility] 3 10:52:29 Date Recorded Body height Provider Name an d Address Organization Details Last Updated DateTime 09/15/2024 180.34 cm Dahiana Seymour [place] [facility] 1 11/15/2023 10:18:41 Social History Question Answer Notes LastModified by Organizat ion Details LastModified Time Tobacco Smoking Status Former Smoker Dahiana Seymour [facility], [place] - [facility] 11/05/2022 14:37:58 Do You Have An Advance Directive? No Information not available 11/05/2022 Are You Blind Or Do You Have Difficulty Seeing? No Information not available 11/05/2022 What Is Your Level Of Caffeine Consumption? Moderate Information not available 11/05/2022 In The 14 Days Before Symptom Onset, Have You Had Close Contact With A Laboratory-confir med COVID-19 While That Case Was Ill? No Information not available 11/05/2022 In The 14 Days Before Symptom Onset, Have You Had Close Contact With A Person Who Is Under Investigation For COVID-19 While That Person Was Ill? No Information not available 11/05/2022 Have You Been To An Area Known To Be High Risk For COVID-19? No Information not available 11/05/2022 Are You Deaf Or Do You Have Serious Difficulty Hearing? No Information not available 11/05/2022 What Type Of Diet Are You Following? REGULAR Information not available 11/05/2022 Have You Processed Blood Or Body Fluids From An Ebola Virus Disease Patient Without Appropriate PPE? No Information not available 11/05/2022 Do You Reside In Or Have You Traveled To An Area Where Ebola Virus Transmission Is Active? No Information not available 11/05/2022 What Is The Highest Grade Or Level Of School You Have Completed Or The Highest Degree You Have Received? [id number] Information not available 11/05/2022 Have There Been Any Changes To Your Family Or Social Situation? No Information no t available 11/05/2022 What Is The Fluoride Status Of Your Home? Fluoridated Information not available 11/05/2022 When Did You Quit Smoking? 16+yearssinwhit gann Information not available 11/05/2022 Have You Recently Or Are You Planning To Travel To An Area With Zika Virus? 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 No Information not available 11/05/2022 What Was The Date Of Your Most Recent Tobacco Screening? 12/12/2024 Information not available 12/12/2024 What Is Your Relationship Status? Information not available 11/05/2022 Are You Sexually Active? Yes Information not available 11/05/2022 Do You Have Smoke And Carbon Monoxide Detectors In Your Home? Yes Information not available 11/05/2022 Are You Passively Exposed To Smoke? No Information no t available 11/05/2022 Do You Have Difficulty Walking Or Climbing Stairs? No Information not available 11/05/2022 Sex: Male Functional Status Question Answer Note LastModified by Organizat ion Details LastModified Time Do you use any illicit or recreational drugs? No Information not available 11/05/2022 Do you or have you ever used any other forms of tobacco or nicotine? No Information not available 03/30/2023 What is your level of alcohol consumption? None Information not available 11/05/2022 Are you currently employed? Yes Information not available 11/05/2022 Do you have transportation difficulties? No Information not available 11/05/2022 Are you able to walk? YESWOREST Information not available 11/05/2022 Do you have difficulty doing errands alone? No Information not available 11/05/2022 Are you able to care for yourself? 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 No Information not available 11/05/2022 What is your exercise level? Moderate Information not available 11/05/2022 Mental Status Question Answer Note LastModified by Organizat ion Details LastModified Time Do you feel stressed (tense, restless, nervous, or anxious, or unable to sleep at night)? CT6966-2 Information not available 03/30/2023 Do you have difficulty concentrating, remembering or making decisions? No Information no t available 11/05/2022 Family History Nothing Reported. Medical History No medical history recorded. Immunizations Vaccine Type Date Status Note Provider Nam e and Address Organization Details Recorded Time zoster recombinant 3 completed Dahiana Seymour [place], [place] - [facility] 11/06/2022 11:47:07 Influenza, high-dose, quadrivalent, PF 3 completed Lola Cohen, [employer] [address], [place], [address], [place] [facility] 09/03/2023 12:05:13 Influenza, high-dose, trivalent, PF 4 completed Dahiana somers, [place] - [facility] 09/15/2024 11:29:19 pneumococcal polysaccharide PPV23 0 completed Dah[place] Seyomur [place] [facility] 11/05/2022 14:35:14 Tdap 4 completed [place] [facility] 11/05/2022 14:35:14 Influenza, adjuvanted, trivalent, PF 7 completed [place] [facility] 11/05/2022 14:35:14 Influenza, high-dose, quadrivalent, PF 0 completed [place] [facility] 11/05/2022 14:35:15 Pneumococcal conjugate PCV 13 7 completed [place] [facility] 11/05/2022 14:35:15 COVID-19, mRNA, LNP-S, PF, 30 mcg/0.3 mL dose 2 completed [place] [facility] 11/05/2022 14:35:15 COVID-19, mRNA, LNP-S, PF, 100 mcg/0.5mL dose or 50 mcg/0.25mL dose 1 completed D[place] [facility] 11/05/2022 14:35:15 Influenza, split virus, quadrivalent, PF 8 completed [place] [facility] 11/05/2022 14:35:15 COVID-19, mRNA, LNP-S, PF, 100 mcg/0.5mL dose or 50 mcg/0.25mL dose 1 completed [place] [facility] 11/05/2022 14:35:15 Influenza, adjuvanted, quadrivalent, PF 2 completed [place] [facility] 11/05/2022 14:35:15 Past Encounters Encounter ID Performer Location Encounter Start Date Encounter Closed Date Diagnosis/Indication Diagnosis SNOMED-CT Code Diagnosis ICD10 Code Diagnosis Note [id number] Lola Cohen APRN [address] [address] 11/05/2022 14:21:35 11/05/2022 15:20:56 Risk of exposure to communicable disease 479139334 Z20.9 watch for s/s of shingles return if [place] [address] 81966 71805 Z23 [id number] [facility] [place] [address] [facility] 11/06/2022 11:31:32 11/06/2022 12:19:02 Active or passive immunization 734573479 Z23 [id number] [facility] [address] [address] 03/30/2023 17:16:02 03/30/2023 18:15:06 Pleuritic pain 3812553 R07.81 Chest pain on breathing 355416381 R07.1 if symptoms worsen or do not improve go to ed [facility] [id number] [facility] [address] 09/03/2023 10:39:27 09/03/2023 11:34:54 Influenza vaccine needed 7743747195 106 Z23 Rib pain 281246627 R07.8 1 pt does not want pain meds [id number] [address] [address] 05/16/2024 08:43:30 05/16/2024 09:45:17 Adult health examination 594173060 Z00.00 Wellness exam completed Depression screening 171 472858 Z13.31 A depression screening was completed via a standardiz ed screening tool. 5 minutes were spent discussing depression screening results and risk factors. Examinatio n of blood pressure 546509334 Z01.30 Blood pressure wnl today at 124/78. Diet education 65544751 Z71.3 Discussed healthy eating and drinking plenty of water and electrolyt e drinks to stay hydrated when working in the heat. Counseling 159537897 Z71 .82 Exercise counseling . Patient encouraged to exercise 30 minutes 5 days a week. At [facility] ed risk for falls 539511975 Z91.81 STEADI FAST screening score of __0___. Advance care planning 71 9614075 Z71.89 Finding of body mass index 449532389 Z68.25 Hypertensive disorder 38 861781 I10 Fatigue 19533748 R53.83 Screening for malignant neoplasm of prostate 367752038 Z12.5 Muscle strain 17081111 T 14.8XXA Prediabetes 276546265 R7 3.03 Bilateral hearing loss 61056827 H91.93 Impaired f asting glycemia 118963777 R73.01 Hypothyroidism 28793108 E03.9 [id number] [facility] [place] [address] 1 09/15/2024 09:42:41 09/15/2024 10:07:02 Influenza vaccine needed 8130338197 106 Z23 Impaired f asting glycemia 528565923 R73.01 [id number] [facility] [place] [address] 1 12/12/2024 15:02:26 12/12/2024 16:13:01 Pharyngitis 873616027 J02.9 no sign of a bacterial infection. likely viral. viruses can take 7-14 days to run their course. nasal saline and bulb syringe to remove nasal drainage to help with congestion . monitor temp. Tylenol or Motrin as needed for pain or fever. encourage fluids, water, Gatorade, power aide, Pedialyte if infant/tod dler/child warm salt water gargles warm fluids sore throat lozenges sleep elevated humidifier /vaporizer follow up immediatel y for new or worsening symptoms or no noticeable improvemen t over the next 48-72 hours Health Concerns Section Related Observation LastModified by Organization Detai ls LastModified Time None Recorded Concern Status LastModified by Organization Details LastModified Time None Recorded Advance Directives Directive N: Payers Insurance Date Sequence Insurance Name Policy Number Policy Loco Covered Member ID Loco Member ID Guarantor Name 12/31/2022 1 *SELF PAY* Do bruce Acosta 12/12/2024 [employer] NATIONAL - MEDICARE [facility] [place] [facility] (MEDICARE) Petar Acosta [id number] Petar Acosta 12/12/2024 1 [place] Petar Acosta [id number] 9 Petar Acosta 12/29/2024 2 [employer] Zheng Karla [id number] Petar Karla Notes Date Note Type Note Provider Name and Address Organization Details Recorded Time 03/30/2023 text/html Petar is a 72 y ear old male who presents to the office today with concerns ofdiscomfort when breathing, started this morning, states was into some poison hemlock yesterday, and was picking up some type of heavy equipment yesterday also, ( did not pick up man by himself). pt states pain is only with breathing. pt states as he takes a deep breath at the end of the breath he feels pain. pt denies any other symptom. Lola Cohen APRN [address], [place], [address], [facility] - [facility] 03/30/2023 18:22:01 09/03/2023 text/html 73 yr old male t hat has left rib pain from an injury last week. He slipped and hit his rib on a bed of a truck. Lola Cohen APRN [address], [place], [address], [place] - [facility] 09/03/2023 12:06:58 05/16/2024 text/html Medicare Annual Wellness VisitReported bypatient.Diet and Nutrition:healthy diet; discussed vitamin and supplement use; discussed portion control Fracture Risk:no history of fractures; no recent explained fracture; no sudden unexplained fractures; no previous musculoskeletal injuries Physical Activity:exercises on a regular basis; recent increase in physical activity; good physical condition Depression Risk:never feels sad, empty, or tearful; no loss of interest in activities; no significant changes in weight; no sleep disturbances or insomnia; no agitation; no feelings of worthlessness or guilt; no thoughts of suicide; no history of depression; no history of mood disorders;loss of energy Orientation:no disorientation to time; no disorientation to date; no disorientation to place Concentration and Memory:no decreased concentrating ability; no memory lapses or loss; does not forget words Speech/Motor difficulties:no speech difficulties; no difficulty expressing formulated concepts; no difficulty with fine manipulative tasks; no difficulty writing/copying; no slowed reaction time; does not knock things over when trying to pick them up Hearing:no loss of hearing Vision:no vision problems Activities of Daily Living:able to bathe with limited or no assistance; able to contol urination and bowels; able to dress with limited or no assistance; able to feed self with limited or no assistance; able to get out of chair or bed with limited or no assistance; able to groom with limited or no assistance; able to toilet with limited or no assistance Instrumental Activities of Daily Living:able to do house work with limited or no assistance; able to grocery shop with limited or no assistance; able to manage medications with limited or no assistance; able to manage money with limited or no assistance; able to prepare meals with limited or no assistance; able to use the phone with limited or no assistance Falls Risk Assessment:no frequent falls while walking; no fall in the past year; no fall since last visit; no dizziness/vertigo Home Safety:no unsafe payton hazzards; no unsafe stairs; no unsafe gas appliances; working smoke/CO detectors; wears protective head gear for biking/high velocity; use of seatbelts; no vision or hearing loss while driving; has hand bars in the bathroom/shower; good lighting in the home Current level of painPain Present 73 yr old male presents for a medicare annual wellness. He has some T Spine pain and low energy and fatigue. Lola Cohen APRN [address], [place], [address], [facility] - [facility] 08/08/2024 16:53:53 12/12/2024 text/html 74 yr old male presents 1 week post cardiac stents with throat burning and fatigue. Lola Cohen APRN [address], [place], [address], [facility] - [facility] 12/12/2024 16:32:22
--- OUTSIDE RECORDS SUMMARY | 2025-05-10 15:38 | XMS_ITS | Encounter Summary ---
Author Organization Healthcare Address [address] 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 Name Role Phone Unavailable Primary Care Provider Unavailabl e Encounter Details Date Type Department Care Team (Late st Contact Info) Description 03/13/2025 Orders Only [facility] Hematology/BMT and Cellular Therapy Program [address] [place] [address] Luann Osroio RN [facility] Social History Tobacco Use Types Packs/Day Years Used Date Smoking Tobacco: Former Alcohol Use Standard Drinks/Week Comments No 0 (1 standard drink = 0.6 oz pur e alcohol) Sex and Gender Information Value Date Recorded Sex Assigned at Not on file Legal Sex Male 7:43 PM EDT Gender Identity Not on file Sexual Orientation Not on file documented as of this encounter Plan of Treatment Not on file documented as of this encounter Visit Diagnoses Not on filedocumented in this encounter
--- OUTSIDE RECORDS SUMMARY | 2025-05-10 15:38 | XMS_ITS | Clinical Summary ---
Author Organization Healthcare Address [address] [place] [address] Care Team Providers Care Traveling Freight Agent Name Role Phone Unavailable Primary Care Provider Unavailabl e Encounters Date Type Department Care Team Description 03/13/2025 Orders Only [facility] Hematology/BMT and Cellular Therapy Program [address] [place] [address] Luann Osorio RN from Last 3 Months Immunizations Immunization Administration Dates Next Due IG 07/13/2017,07/12/2017 Influenza, injectable, quadrivalent, preservativ e free 09/06/2018 Tdap 07/09/2017 Family History Medical History Relation Name Comments Cardiac disorder Mother Hypertension Mother Throat cancer Sibling Relation Name Status Comments Mother Sibling Social History Tobacco Use Types Packs/Day Years Used Date Smoking Tobacco: Former Alcohol Use Standard Drinks/Week Comments No 0 (1 standard drink = 0.6 oz pur e alcohol) Sex and Gender Information Value Date Recorded Sex Assigned at Not on file Legal Sex Male 7:43 PM EDT Gender Identity Not on file Sexual Orientation Not on file Last Filed Vital Signs Vital Sign Reading Time Taken Comments Blood Pressure - - Pulse - - Temperature - - Respiratory Rate - - Oxygen Saturation - - Inhaled Oxygen Concentration - - Weight 90.7 kg (200 lb) 04/22/2015 1:04 PM EDT Height 180.3 cm (5' 11 ) 04/22/2015 1:04 PM EDT Body Mass Index 27.89 04/22/2015 1:04 PM EDT Plan of Treatment Health Maintenance Due Date Last Done Comments [facility]-Depression Screening 1950 [facility]-/Child/Adol SDOH Screenings 1950 [facility]- SDOH Screenings 1968 [facility]-Adult SDOH Screenings 1968 CT Colonography 1995 Colonoscopy 1995 FIT-DNA 1995 FIT 1995 FOBT 1995 Sigmoidoscopy 1995 [facility]-Colorectal Cancer Screening 1995 [facility]-Pneumococcal Vaccine: 50 + Years (1 of 1 - PCV) 2000 [facility]-Zoster Vaccines (1 of 2) 2000 XVP-IQLFT-84 Vaccine (1 - 20 24-25 season) 2024 [facility]-RSV Vaccine: 60+ Years o r (1 - 1-dose 75+ series) 2025 [facility]-Influenza Vaccine (#1) 2025 09/06/2018 [facility]-DTaP,Tdap,and Td Vaccine s (2 - Td or Tdap) 07/09/2027 07/09/2017 HPV Vaccines Aged Out No longer eligi ble based on patient's age to complete this topic [facility]-HIB Vaccines Aged Out No longer e ligible based on patient's age to complete this topic [facility]-Hepatitis A Vaccines Aged Out No longer eligible based on patient's age to complete this topic [facility]-IPV Vaccines Aged Out No longer e ligible based on patient's age to complete this topic [facility]-Rotavirus Vaccines Aged Out No lo nger eligible based on patient's age to complete this topic
[2025-05-10 16:19] LABS: Hematocrit 38.0 % (42.0-52.0); Hemoglobin 12.8 g/dL (14.1-18.0); Immature Granulocytes % 0.1 %; Mean Corpuscular HGB Conc 33.7 g/dL (31.8-35.4); Mean Corpuscular Hemoglobin 32.2 pg (27.0-31.2); Mean Corpuscular Volume 95.5 fl (80-94); Nucleated Red Blood Cells % 0 %; Platelet Count 141 K/mm3 (142-424); Red Blood Count 3.98 M/mm3 (4.60-6.20); Red Cell Distribution Width-SD 42.8 fL; White Blood Count 8.1 K/mm3 (4.8-10.8)
== END 2025-05-10 23:59 | disposition home or self-care (01) ==
LOC: LAB 15:36
PROVIDERS: PCP Nurse Practitioner Family; Visit Provider Internal Medicine
DX: D69.3 Immune thrombocytopenic purpura (principal)
CPT/HCPCS: 36415; 85025

== ENCOUNTER 2025-05-24 11:46 | Outpatient (CLI) | payer MEDICARE, OTHER, SELFPAY ==
--- OUTSIDE RECORDS SUMMARY | 2025-05-24 11:49 | XMS_ITS | Clinical Summary ---
Author Organization Healthcare Address [address] [place] [address] Care Team Providers Care Estimating Engineer Name Role Phone Unavailable Primary Care Provider Unavailabl e Encounters Date Type Department Care Team Description 03/13/2025 Orders Only [facility] Hematology/BMT and Cellular Therapy Program [address] [place] [address] Luann Osorio RN from Last 3 Months [...] 2000 [facility]-Zoster Vaccines (1 of 2) 2000 [id number]-63 Vaccine (1 - 20 24-25 season) 2024 [...]
--- OUTSIDE RECORDS SUMMARY | 2025-05-24 11:49 | XMS_ITS | Data Portability ---
Author Organization [facility] [place] [facility] Address [address] [place] [address] Care Team Providers Care Mechanical Engineering Director Name Role Phone FLORECITA URRUTIA Primary Care [...] By Organization Details Last Modified Time 09/04/2022 [id number] 1-Cleaned hearin g aids. 2-F/u prn. [email or web address] Not available 09/04/2022 09:56:28 Reason for Referral None Reported. Problems Name Problem SNOMED Code Status Onset Date Resolution Date Notes Provider Name and Address Organization Details Recorded Time Asymmetrical sensorineural hearing loss 251315213 Active 2021 SANDY HOOKER [address] [place], [address] , [facility] [place] 2 10:38:00 Sensorineural hearing loss 79477153 Active 2022 SANDY HOOKER [address] [place], [address] , [facility] & [place] 3 14:30:51 Problem Notes None recorded. Medical [...] SNOMED-CT Code Diagnosis ICD10 Code Diagnosis Note [id number] SANDY HOOKER E[facility] [place] [address] 09/04/2022 09:42:27 09/04/2022 09:54:51 Sensorineural hearing loss 92866484 H90.3 [id number] SANDY HOOKER [facility] [place] [address] [address] [place] [address] 09/08/2022 09:30:07 09/08/2022 10:06:56 Asymmetrical sensorineural hearing loss 190711350 H90.5 [id number] SANDY HOOKER ENT [facility] [address] [place] [address] 12/21/2022 14:26:13 12/21/2022 14:31:22 Sensorineural hearing loss 60567141 H90.3 Health Concerns Section Related Observation LastModified by Organization Detai ls LastModified Time None Recorded Concern Status LastModified by Organization Details LastModified Time None Recorded Advance Directives Directive None Recorded Payers Insurance Date Sequence Insurance Name Policy Number Policy Loco Covered Member ID Loco Member ID Guarantor Name 05/20/2024 1 [place] Petar Acosta [id number] Petar Acosta 05/20/2024 2 [employer] (MEDICARE SUPPLEMENT) Petar Acosta [id number] Petar Acosta 05/20/2024 1 [place] Petar Acosta [id number] Petar Acosta 05/20/2024 2 [employer] (MEDICARE SUPPLEMENT) Petar Acosta [id number] Petar Acosta 05/20/2024 [facility] Petar Acosta [id number] Ptear Acosta Notes Date Note Type Note Provider Name and Address Organization Details Recorded Time 09/04/2022 text/html DizzinessReporte d by Patient Hearing Loss - AdultReported by Patient Mr. Acosta was seen today for a hearing aid service. HAYLEY BERUMEN, SANDY [address] [facility],[address], [place], [address], [facility] 09/04/2022 09:56:42 09/08/2022 text/html DizzinessReporte d by Patient Hearing Loss - AdultReported by PatientROS as noted in the HPI Mr. Acosta was seen today for an annual audiologic evaluation due [...] Otoscopic inspection was unremarkable bilaterally. HAYLEY BERUMEN, AUD [address] [facility], [place], [address], [facility] 09/08/2022 10:39:13 12/21/2022 text/html Hearing Loss - AdultReported by Patient DizzinessReported by PatientROS as noted in the HPI Mr. Acosta was seen today for a hearing aid service. HAYLEY BERUMEN, AUD [address] [facility], [place], [address], [facility] [place] [facility] [place] 12/21/2022 14:31:17
--- OUTSIDE RECORDS SUMMARY | 2025-05-24 11:49 | XMS_ITS | Data Portability ---
Author Organization Formerly [facility] Address [address] [place] [address] Assessment Encounter Date Assessment Date Assessment LastModified by Organization Details LastModified Time 05/16/2024 05/16/2024 Medicare Preventive Services Check List reviewed and printed for patient. blair Not available 05/16/2024 08:52:02 Plan of Treatment Reminders Order Date Submit Date Provider Last Modified By Organization Details Last Modified Time Details Appointments None recorded. Lab rapid strep group A, throat 2024 025 [facility], [address] [place] [address], [id number], 5 16:31:55 rapid flu (A+B) 2024 025 [facility], [address] [place] [address], [phone], 5 16:31:55 rapid SARS CoV + SARS CoV 2 Ag, QL IA, respiratory specimen 2024 025 [facility], [address] [place] [address], [address], 5 16:31:55 HbA1c (hemoglobin A1c), blood 2023 024 blair [facility], [address] [place] [address], [address], 4 11:28:28 CBC w/ auto diff 2023 024 [facility], [address], [address], [place], [address], 4 00:06:32 CMP, serum or plasma 2023 024 [facility], [address], [address], [place], [address], 4 00:06:34 lipid panel, serum 2023 024 [facility], [address], [place] [address], [place], [address], 4 00:06:36 testosteron e, free + total, serum 2023 024 [facility], [address], [address], [place], [address], 4 00:06:38 vitamin B12 + folate, serum or blood 2023 024 [facility], [address], [place] [address], [place], [address], 4 00:06:37 TSH + free T4, serum 2023 024 [facility], [address], [address], [place], [address], 4 00:06:30 HbA1c (hemoglobin A1c), blood 2023 024 [facility], [address], [place] [address], [place], [address], 4 16:18:12 PSA, serum or plasma 2023 024 [facility], [address], [place] [address], [place], [address], 4 00:06:38 vitamin D, 25-hydroxy, total, serum 2023 024 [facility], [address], [place] [address], [place], [address], 5 16:51:13 Referral None recorded. Procedures None recorded. Surgeries None recorded. Imaging XR, ribs, unilateral, w/ PA chest 2022 023 [facility] (X-Ray), [address] [place] [address] [address], [place], [address], 3 14:27:19 electrocard iogram 2022 023 [facility], [address] [facility], [place], [address], 3 18:19:02 Medication Orders cyclobenzap rine 5 mg tablet 2023 025 [facility], [facility] [address], [id number], 5 15:17:17 prednisone 10 mg tablet 2022 023 [facility], [address], [id number], 3 10:53:01 Patient TargetsNo targets recorded. Patient Instructions Encounter Date Encounter Id Patient Instructions Last Modified By Organization Details Last Modified Time 05/16/2024 [id number] advance directives: care instructions efryman Not available 05/16/2024 09:31:53 learning about depression efryman Not available 05/16/2024 09:31:53 preventing falls : care instructions efryman Not available 05/16/2024 09:31:53 medicare preventive services guide efryman Not available 05/16/2024 09:31:53 learning about healthy weight efryman Not available 05/16/2024 09:31:53 Learning About Being Physically Active efryman Not available 05/16/2024 09:31:53 12/12/2024 [id number] sore throat in children: care instructions barbra Not available 12/12/2024 16:31:55 Reason for Referral None Reported. Results Created Date Observation Date Name Description Value Unit Range Abnormal Flag Note LastModifiedBy Organization Detail LastModifiedTime 05/16/2005/17/2024 TSH+F REE T4 TSH 2.740 uIU/m L 0.450- 4.500 Not Available [facility] ([facility]) [address] [place], [address], 05/19/2024 00:06:29 05/16/2005/17/2024 TSH+F REE T4 T4,free(dire ct) 1.32 NG/dL 0.82-1 .77 Not Available [facility] ([facility]) [address] [place], [address], 05/19/2024 00:06:29 05/16/20 24 05/17/2024 CBC WITH DIFFE RENTI AL/PL ATELE T WBC 7.1 x10e3 /uL 3.4-10 .8 Not Available [facility] ([facility]) [address] [place], [address], 05/19/2024 00:06:32 05/16/20 24 05/17/2024 CBC WITH DIFFE RENTI AL/PL ATELE T RBC 4.40 x10e6 /uL 4.14-5 .80 Not Available [facility] ([facility]) [address] [place], [address], 05/19/2024 00:06:32 05/16/20 24 05/17/2024 CBC WITH DIFFE RENTI AL/PL ATELE T hemoglobin 14.0 g/dL 13.0-1 7.7 Not Available [facility] ([facility]) [address] [place], [address], 05/19/2024 00:06:32 05/16/20 24 05/17/2024 CBC WITH DIFFE RENTI AL/PL ATELE T hematocrit 41.0 % 37.5-5 1.0 Not Available [facility] ([facility]) [address] [facility], [place], [address], 05/19/2024 00:06:32 05/16/20 24 05/17/2024 CBC WITH DIFFE RENTI AL/PL ATELE T MCV 93 fL 79-97 Not Available [facility] ([facility]) [address] [facility], [place], [address], 05/19/2024 00:06:32 05/16/2005/17/2024 CBC WITH DIFFE RENTI AL/PL ATELE T MCH 31.8 pg 26.6-3 3.0 Not Available [facility] ([facility]) [address] [facility], [place], [address], 05/19/2024 00:06:32 05/16/20 24 05/17/2024 CBC WITH DIFFE RENTI AL/PL ATELE T MCHC 34.1 g/dL 31.5-3 5.7 Not Available [facility] ([facility]) [address] [facility], [place], [address], 05/19/2024 00:06:32 05/16/20 24 05/17/2024 CBC WITH DIFFE RENTI AL/PL ATELE T RDW 12.8 % 11.6-1 5.4 Not Available [facility] ([facility]) [address] [facility], [place], [address], 05/19/2024 00:06:32 05/16/20 24 05/17/2024 CBC WITH DIFFE RENTI AL/PL ATELE T platelets 220 x10e3 /uL 150-45 0 Not Available [facility] ([facility]) [address] [facility], [place], [address], 05/19/2024 00:06:32 05/16/20 24 05/17/2024 CBC WITH DIFFE RENTI AL/PL ATELE T neutrophils 61 % not estab. Not Available [facility] ([facility]) [address] [facility], [place], [address], 05/19/2024 00:06:32 05/16/20 24 05/17/2024 CBC WITH DIFFE RENTI AL/PL ATELE T lymphs 29 % not estab. Not Available [facility] ([facility]) [address] [facility], [place], [address], 05/19/2024 00:06:32 05/16/20 24 05/17/2024 CBC WITH DIFFE RENTI AL/PL ATELE T monocytes 9 % not estab. Not Available [facility] ([facility]) [address] [facility], [place], [address], 05/19/2024 00:06:32 05/16/20 24 05/17/2024 CBC WITH DIFFE RENTI AL/PL ATELE T eos 1 % not estab. Not Available [facility] ([facility]) [address] [facility], [place], [address], 05/19/2024 00:06:32 05/16/20 24 05/17/2024 CBC WITH DIFFE RENTI AL/PL ATELE T basos 0 % not estab. Not Available [facility] ([facility]) [address] [facility], [place], [address], 05/19/2024 00:06:32 05/16/20 24 05/17/2024 CBC WITH DIFFE RENTI AL/PL ATELE T immature cells STUDY LEAD Not Available [facility] ([facility]) [address] [place], [address], 05/19/2024 00:06:32 05/16/20 24 05/17/2024 CBC WITH DIFFE RENTI AL/PL ATELE T neutrophils (absolute) 4.3 x10e3 /uL 1.4-7. 0 Not Available [facility] ([facility]) [address] [facility], [place], [address], 05/19/2024 00:06:32 05/16/20 24 05/17/2024 CBC WITH DIFFE RENTI AL/PL ATELE T lymphs (absolute) 2.1 x10e3 /uL 0.7-3. 1 Not Available [facility] ([facility]) [address] [facility], [place], [address], 05/19/2024 00:06:32 05/16/20 24 05/17/2024 CBC WITH DIFFE RENTI AL/PL ATELE T monocytes(ab solute) 0.6 x10e3 /uL 0.1-0. 9 Not Available [facility] ([facility]) [address] [facility], [place], [address], 05/19/2024 00:06:32 05/16/20 24 05/17/2024 CBC WITH DIFFE RENTI AL/PL ATELE T eos (absolute) 0.1 x10e3 /uL 0.0-0. 4 Not Available [facility] ([facility]) [address] [facility], [place], [address], 05/19/2024 00:06:32 05/16/20 24 05/17/2024 CBC WITH DIFFE RENTI AL/PL ATELE T baso (absolute) 0.0 x10e3 /uL 0.0-0. 2 Not Available [facility] ([facility]) [address] [facility], [place], [address], 05/19/2024 00:06:32 05/16/20 24 05/17/2024 CBC WITH DIFFE RENTI AL/PL ATELE T immature granulocytes 0 % not estab. Not Available [facility] ([facility]) [address] [facility], [place], [address], 05/19/2024 00:06:32 05/16/20 24 05/17/2024 CBC WITH DIFFE RENTI AL/PL ATELE T immature grans (abs) 0.0 x10e3 /uL 0.0-0. 1 Not Available [facility] ([facility]) [address] [facility], [place], [address], 05/19/2024 00:06:32 05/16/20 24 05/17/2024 CBC WITH DIFFE RENTI AL/PL ATELE T NRBC STUDY LEAD Not Available [facility] ([facility]) [address] [facility], [place], [address], 05/19/2024 00:06:32 05/16/20 24 05/17/2024 CBC WITH DIFFE RENTI AL/PL ATELE T hematology comments: STUDY LEAD Not Available [facility] ([facility]) [address] [facility], [place], [address], 05/19/2024 00:06:32 05/16/20 24 05/17/2024 COMP. METAB OLIC PANEL (14) glucose 115 mg/dL 70-99 above high normal Not Available [facility] ([facility]) [address] [facility], [place], [address], 05/19/2024 00:06:34 05/16/20 24 05/17/2024 COMP. METAB OLIC PANEL (14) BUN 12 mg/dL 8-27 Not Available [facility] ([facility]) [address] [facility] [place], [address], 05/19/2024 00:06:34 05/16/20 24 05/17/2024 COMP. METAB OLIC PANEL (14) creatinine 0.95 mg/dL 0.76-1 .27 Not Available [facility] ([facility]) [address] [facility] [place], [address], 05/19/2024 00:06:34 05/16/20 24 05/17/2024 COMP. METAB OLIC PANEL (14) eGFR 85 mL/mi n/1.7 3 >59 Not Available [facility] ([facility]) [address] [facility] [place], [address], 05/19/2024 00:06:34 05/16/20 24 05/17/2024 COMP. METAB OLIC PANEL (14) BUN/creatini ne ratio 13 10-24 Not Available [facility] ([facility]) [address], [place], [address], 05/19/2024 00:06:34 05/16/20 24 05/17/2024 COMP. METAB OLIC PANEL (14) sodium 136 mmol/ L 134-14 4 Not Available [facility] ([facility]) [address], [place], [address], 05/19/2024 00:06:34 05/16/20 24 05/17/2024 COMP. METAB OLIC PANEL (14) potassium 4.4 mmol/ L 3.5-5. 2 Not Available [facility] ([facility]) [address], [place], [address], 05/19/2024 00:06:34 05/16/20 24 05/17/2024 COMP. METAB OLIC PANEL (14) chloride 102 mmol/ L 96-106 Not Available [facility] ([facility]) [address], [place], [address], 05/19/2024 00:06:34 05/16/20 24 05/17/2024 COMP. METAB OLIC PANEL (14) carbon dioxide, total 22 mmol/ L 20-29 Not Available [facility] ([facility]) [address], [place], [address], 05/19/2024 00:06:34 05/16/20 24 05/17/2024 COMP. METAB OLIC PANEL (14) calcium 9.0 mg/dL 8.6-10 .2 Not Available [facility] ([facility]) [address], [place], [address], 05/19/2024 00:06:34 05/16/20 24 05/17/2024 COMP. METAB OLIC PANEL (14) protein, total 7.0 g/dL 6.0-8. 5 Not Available [facility] ([facility]) [address] [facility] [place], [address], 05/19/2024 00:06:34 05/16/20 24 05/17/2024 COMP. METAB OLIC PANEL (14) albumin 4.1 g/dL 3.8-4. 8 Not Available [facility] ([facility]) [address] [facility], [place], [address], 05/19/2024 00:06:34 05/16/20 24 05/17/2024 COMP. METAB OLIC PANEL (14) globulin, total 2.9 g/dL 1.5-4. 5 Not Available [facility] ([facility]) [address] [facility], [place], [address], 05/19/2024 00:06:34 05/16/20 24 05/17/2024 COMP. METAB OLIC PANEL (14) bilirubin, total 0.5 mg/dL 0.0-1. 2 Not Available [facility] ([facility]) [address] [facility] [place], [address], 05/19/2024 00:06:34 05/16/20 24 05/17/2024 COMP. METAB OLIC PANEL (14) alkaline phosphatase 135 IU/L 44-121 above high normal Not Available [facility] ([facility]) [address] [facility] [place], [address], 05/19/2024 00:06:34 05/16/20 24 05/17/2024 COMP. METAB OLIC PANEL (14) AST (SGOT) 61 IU/L 0-40 above high normal Not Available [facility] ([facility]) [address] [facility] [place], [address], 05/19/2024 00:06:34 05/16/20 24 05/17/2024 COMP. METAB OLIC PANEL (14) ALT (SGPT) 70 IU/L 0-44 above high normal Not Available [facility] ([facility]) [address] [place], [address], 05/19/2024 00:06:34 05/16/20 24 05/17/2024 LIPID PANEL cholesterol, total 110 mg/dL 100-19 9 Not Available [facility] ([facility]) [address] [place], [address], 05/19/2024 00:06:36 05/16/20 24 05/17/2024 LIPID PANEL triglyceride s 120 mg/dL 0-149 Not Available [facility] ([facility]) [address] [place], [address], 05/19/2024 00:06:36 05/16/20 24 05/17/2024 LIPID PANEL HDL cholesterol 31 mg/dL >39 below low normal Not Available [facility] ([facility]) [address] [place], [address], 05/19/2024 00:06:36 05/16/20 24 05/17/2024 LIPID PANEL VLDL cholesterol to 22 mg/dL 5-40 Not Available [facility] ([facility]) [address] [place], [address], 05/19/2024 00:06:36 05/16/20 24 05/17/2024 LIPID PANEL LDL chol calc ([facility]) 57 mg/dL 0-99 Not Available [facility] [address] [place], [address], 05/19/2024 00:06:36 05/16/20 24 05/17/2024 LIPID PANEL LDL calc comment: STUDY LEAD Not Available [facility] ([facility]) [address] [place], [address], 05/19/2024 00:06:36 05/16/20 24 05/17/2024 VITAM IN B12 AND FOLAT E vitamin B12 588 pg/mL 232-12 45 Not Available [facility] ([facility]) [address] [place], [address], 05/19/2024 00:06:37 05/16/20 24 05/17/2024 VITAM IN B12 AND FOLAT E folate (folic acid), serum 11.2 NG/mL >3.0 A serum folat e diego ntrat ion of less than 3.1 ng/mL is consi dered to repre sent clini to defic iency . Not Available [facility] ([facility]) [address] [place], [address], 05/19/2024 00:06:37 05/16/20 24 05/17/2024 TESTO STERO NE,FR EE AND TOTAL testosterone 297 NG/dL 264-91 6 Adult male refer ence inter amari is based on a popul ation of healt hy nonob basim males (BMI <30) betwe en 19 and 39 years old. Kathy briceño et.al . JCEM 2017, 102;1 161-1 173. PMID: 86474 103. Not Available [facility] ([facility]) [address] [facility], [place], [address], 05/19/2024 00:06:38 05/16/20 24 05/18/2024 TESTO STERO NE,FR EE AND TOTAL free testosterone (direct) 1.3 pg/mL 6.6-18 .1 below low normal Not Available [facility] ([facility]) [address] [facility], [place], [address], 05/19/2024 00:06:38 05/16/20 24 05/17/2024 PSA TOTAL [...] t be inter prete d as absol [place] evide nce of the prese nce or absen ce of hilda ray disea se. Not Available [facility] ([facility]) [address] [facility], [place], [address], 05/19/2024 00:06:38 05/16/20 24 05/17/2024 PSA TOTAL (REFL EX TO FREE) reflex criteria Commen t The perce nt free PSA is perfo rmed on a refle x basis only when the total PSA is betwe en 4.0 and 10.0 ng/mL . Not Available [facility] ([facility]) [address] [facility], [place], [address], 05/19/2024 00:06:38 05/16/20 24 05/17/2024 HEMOG LOBIN A1C hemoglobin A1C 6.4 % 4.8-5. 6 above high normal Predi abete s: 5.7 - 6.4 Diabe luke: >6.4 Glyce ruchi contr ol for adult s with diabe luke: <7.0 Not Available [facility] ([facility]) [address] [facility], [place], [address], 05/19/2024 00:06:40 05/16/20 24 05/17/2024 VITAM IN [...] um and D. Marguerite lu [place]: [facility] . 2. Pedro Pablo k MF, Binkl ey [place], Aishwarya off-F errar i YUEN, et al. Evalu ation , treat ment, and preve ntion of vitam in D defic iency : an Endoc rine Socie ty clini to pract ice guide line. JCEM. 2010; 96(7) :1911 -30. Not Available [facility] ([facility]) [address] [facility], [place], [address], 05/19/2024 00:06:41 09/15/20 24 09/15/2024 HbA1c (hemo globi n A1c), blood HbA1C 6.0 % Not Available [address], [address], 09/15/2024 10:31:29 12/12/19 25 12/12/2024 rapid SARS CoV + SARS CoV 2 Ag, QL IA, respi rator y speci men SARS CoV antigen Negati ve Not Available [address], [address], 12/12/2024 15:41:58 12/12/19 25 12/12/2024 rapid flu (A+B) Flu negati ve Not Available [address], [address], 12/12/2024 15:41:50 12/12/19 25 12/12/2024 rapid flu (A+B) Type Both A & B Not Available [address], [address], 12/12/2024 15:41:50 12/12/19 25 12/12/2024 rapid strep group A, throa t Strep negati ve Not Available [address], [address], 12/12/2024 15:14:58 12/12/19 25 12/12/2024 rapid strep group A, throa t Culture No Not Available [address], [address], 12/12/2024 15:14:58 03/30/20 23 03/30/2023 elect rocar diogr am No observ ation record ed. [address], [address], 03/30/2023 18:19:03 04/05/20 23 03/30/2023 elect rocar diogr am No observ ation record ed. [facility] [address], [address], 04/05/2023 11:09:26 09/03/20 23 09/03/2023 XR, ribs, unila teral , w/ PA chest No observ ation record ed. [address], [place], [address], 09/03/2023 15:23:17 11/22/19 25 11/15/2024 CT, angio gram, coron abdirizak arter ies, w/ contr ast No observ ation record ed. [facility] [address], [place], [address], 11/23/2024 08:27:35 Result Notes None recorded. Problems Name Problem SNOMED Code Status Onset Date Resolution Date Notes Provider Name and Address Organization Details Recorded Time Hypertensiv e disorder 76830712 Active NOE Cao - [facility] 3 14:37:07 Hyperlipide momo 10054436 Active NOE Cao - [facility] 3 14:37:19 Hearing loss 50871128 Active Thinks hearing loss was caused by covid-19 NOE Cao - [facility] 3 14:39:34 Type 2 diabetes mellitus 69029319 Active 2023 Lola Cohen, STRIP MILL OPERATOR [address], [place], [address] , [place] - [facility] 4 17:03:32 Alkaline phosphatase above reference range 957152656 Active 2023 Lola Cohen, STRIP MILL OPERATOR [address], [place], [address] , [place] - [facility] 4 17:05:10 Liver enzymes level above reference range 689939971 Active 2023 Lola Cohen, STRIP MILL OPERATOR [address], [place], [address] , [place] - [facility] 4 17:06:13 Problem Notes None recorded. Procedures Surgical History Date Name Laterality Status Provider Name and Address Organization Details Recorded Time 4 Advance Care Planning completed Dahiana LIU - [facility] 05/16/2024 08:52:03 4 Functional Status Assessed completed Dahiana Seymour [facility] 05/16/2024 08:52:03 Imaging Results None recorded. [...] Arterial blood by Pulse oximetry Respiratory rate Pain severity - 0-10 verbal numeric rating [Score] - Reported Systolic And Diastolic Provider Name and Address Organization Details Last Updated DateTime 180.34 cm 68 /min 97.3 [degF] 28.7 kg/m2 40928.0 3 g 100 % 100 % 18 /min 0 110/68 mm[Hg] Dahiana Seymoru [place] - [facility] 5 15:17:26 Date Recorded Body weight Body mass index (BMI) Body height Heart rate Oxygen saturation Oxygen saturation in Arterial blood by Pulse oximetry Respiratory rate Body temperature Systolic And Diastolic Provider Name and Address Organization Details Last Updated DateTime 3 36161.4 4 g 28.6 kg/m2 180.34 cm 64 /min 95 % 95 % 18 /min 97.6 [degF] 132/68 mm[Hg] Hayley Andrzej [place] - [facility] 3 17:25:53 Date Recorded Body height Body mass index (BMI) Body weight Body temperature Heart rate Oxygen saturation Oxygen saturation in Arterial blood by Pulse oximetry Respiratory rate Pain severity - 0-10 verbal numeric rating [Score] - Reported Systolic And Diastolic Provider Name and Address Organization Details Last Updated DateTime 4 180.34 cm 27.9 kg/m2 81131.4 7 g 97 [degF] 60 /min 97 % 97 % 20 /min 0 124/78 mm[Hg] Dahiana Seymour [place] - [facility] 4 08:54:30 Date Recorded Body height Body mass index (BMI) Body weight Body temperature Heart rate Oxygen saturation Oxygen saturation in Arterial blood by Pulse oximetry Respiratory rate Pain severity - 0-10 verbal numeric rating [Score] - Reported Systolic And Diastolic Provider Name and Address Organization Details Last Updated DateTime 3 180.34 cm 28.7 kg/m2 59238.7 3 g 98.1 [degF] 55 /min 96 % 96 % 18 /min 7 117/72 mm[Hg] Dahiana Seymour [place] - [facility] 3 10:52:29 Date Recorded Body height Provider Name an d Address Organization Details Last Updated DateTime 09/15/2024 180.34 cm Dahiana Seymour [facility] 1 11/15/2023 10:18:41 Social History Question Answer Notes LastModified by Organizat ion Details LastModified Time Tobacco Smoking Status Former Smoker Dahiana somers [place] - [facility] 11/05/2022 14:37:58 Do You Have [...] Or The Highest Degree You Have Received? [id number] Information not available 11/05/2022 Have There Been Any Changes To Your Family Or Social Situation? No Information no t available 11/05/2022 What Is The Fluoride Status Of Your Home? Fluoridated Information not available 11/05/2022 When Did You Quit Smoking? 16+yearssincela sanjuanita Information not available 11/05/2022 Have You Recently Or Are You Planning To Travel To An Area With Zika Virus? No Information not available 11/05/2022 Do You Have A Medical Power Of Crystal Growing Technician? No Information not available 11/05/2022 What Was [...] anxious, or unable to sleep at night)? [id number] Information not available 03/30/2023 Do you have difficulty concentrating, remembering or making decisions? No Information no t available 11/05/2022 Family History Nothing Reported. Medical History No medical history recorded. Immunizations Vaccine Type Date Status Note Provider Nam e and Address Organization Details Recorded Time zoster recombinant 3 completed Dahiana Seymour [facility], [place] - [facility] 11/06/2022 11:47:07 Influenza, high-dose, quadrivalent, PF 3 completed Lola Cohen, AMMY [address], [place], [address] [place] - [facility] 09/03/2023 12:05:13 Influenza, high-dose, trivalent, PF 4 completed Dahiana Seymour null, [place] - [facility] 09/15/2024 11:29:19 pneumococcal polysaccharide PPV23 0 completed Dahiana Seymour [place], [place] - [facility] 11/05/2022 14:35:14 Tdap 4 completed Dahiana Seym[place] - [facility] 11/05/2022 14:35:14 Influenza, adjuvanted, trivalent, PF 7 completed Dahiana Starkler [place], [place] - [facility] 11/05/2022 14:35:14 Influenza, high-dose, quadrivalent, PF 0 completed [facility] [place], [place] [facility] 11/05/2022 14:35:15 Pneumococcal conjugate PCV 13 7 completed Dahiana Seymour [place], [place] - [facility] 11/05/2022 14:35:15 COVID-19, mRNA, LNP-S, PF, 30 mcg/0.3 mL dose 2 completed Dahiana Seymour [place], [place] - [facility] 11/05/2022 14:35:15 COVID-19, mRNA, LNP-S, PF, 100 mcg/0.5mL dose or 50 mcg/0.25mL dose 1 completed Dahiana Seymour [place], [place] - [facility] 11/05/2022 14:35:15 Influenza, split virus, quadrivalent, PF 8 completed Dahiana Seymour [place] - [facility] 11/05/2022 14:35:15 COVID-19, mRNA, LNP-S, PF, 100 mcg/0.5mL dose or 50 mcg/0.25mL dose 1 completed Dahiana Seymour [place], [place] - [facility] 11/05/2022 14:35:15 Influenza, adjuvanted, quadrivalent, PF 2 completed Dahiana Seymour null, [place] - [facility] 11/05/2022 14:35:15 Past Encounters Encounter ID Performer Location Encounter Start Date Encounter Closed Date Diagnosis/Indication Diagnosis SNOMED-CT Code Diagnosis ICD10 Code Diagnosis Note [id number] Lola Cohen APRN [place] [address] [address] 11/05/2022 14:21:35 11/05/2022 15:20:56 Risk of exposure to communicable disease 041168705 Z20.9 watch for s/s of shingles return if any issues [place] [address]203 84164 Z23 [id number] [facility] Diazdevsp[address] [address] 11/06/2022 11:31:32 11/06/2022 12:19:02 Active or passive immunization 703480541 Z23 [id number] [facility] [address] [address] 03/30/2023 17:16:02 03/30/2023 18:15:06 Pleuritic pain 3173825 R07.81 Chest pain on breathing 146164123 R07.1 if symptoms worsen or do not improve go to ed [facility] [id number] [facility] Biloxiarmaan [address] [address] 09/03/2023 10:39:27 09/03/2023 11:34:54 Influenza vaccine needed [id number] 106 Z23 Rib pain 141259604 R07.8 1 pt does not want pain meds [id number] [facility] [address] [address] 05/16/2024 08:43:30 05/16/2024 09:45:17 Adult health examination [id number] Z00.00 Wellness exam completed Depression screening 171 [id number] Z13.31 A depression screening was completed via a standardiz ed screening tool. 5 minutes were spent discussing depression screening results and risk factors. Examinatio n of blood pressure [id number] Z01.30 Blood pressure wnl today at 124/78. Diet education 23569774 Z71.3 Discussed healthy eating and drinking plenty of water and electrolyt e drinks to stay hydrated when working in the heat. Counseling [id number] Z71 .82 Exercise counseling . Patient encouraged to exercise 30 minutes 5 days a week. At [facility] ed risk for falls 300855990 Z91.81 STEADI FAST screening score of __0___. Advance care planning 71 0273932 Z71.89 Finding of body mass index 323089923 Z68.25 Hypertensive disorder 38 044225 I10 Fatigue 17017492 R53.83 Screening for malignant neoplasm of prostate 547790351 Z12.5 Muscle strain 46215055 T 14.8XXA Prediabetes 304785126 R7 3.03 Bilateral hearing loss 43996862 H91.93 Impaired f asting glycemia 387195486 R73.01 Hypothyroidism 39144350 E03.9 [id number] [place] [id number] 1 09/15/2024 09:42:41 09/15/2024 10:07:02 Influenza vaccine needed [id number] 106 Z23 Impaired f asting glycemia 315921256 R73.01 [id number] [facility] [id number] 1 12/12/2024 15:02:26 12/12/2024 16:13:01 Pharyngitis 491297893 J02.9 no sign of a bacterial infection. [...] bruce Acosta 12/12/2024 [employer] N[place] - [place] [facility] (MEDICARE) Petar Acosta [id number] 9 Petar Acosta 12/12/2024 1 [place] Petar Acosta [id number] 9 Petar Acosta 12/29/2024 2 [facility] KESHAWN Acosta [id number] Petar Acosta Notes Date Note Type Note Provider Name and Address Organization Details Recorded Time 03/30/2023 text/html Petar is a 72 year old male who presents to the office today with concerns ofdiscomfort when breathing, started this morning, states was into some poison hemlock yesterday, and was picking up some type of heavy equipment yesterday also, ( 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 pt states pain is only with breathing. pt states as he takes a deep breath at the end of the breath he feels pain. pt denies any other symptom. Lola Cohen APRN [address], [place], [address], [facility] - [facility] 03/30/2023 18:22:01 09/03/2023 text/html 73 yr old male that has left rib pain from an injury last week. He slipped and hit his rib on a bed of a truck. Bowenjennifer Cohen APRN [address], [place], [address], [facility] - [facility] 09/03/2023 12:06:58 05/16/2024 text/html Medicare Annual Wellness VisitReported by PatientSocial/Behavior al HistoryFor diet and nutrition, patient reportshealthy diet,discussed vitamin and supplement use, anddiscussed portion control. For fracture risk, patient reportsno history of fractures,no recent explained fracture,no sudden unexplained fractures, andno previous musculoskeletal injuries. For physical activity, patient reportsexercises on a regular basis,recent increase in physical activity, andgood physical condition.Mental Status:For depression risk, patient reportsloss of energybut reportsnever feels sad, empty, or tearful,no loss of interest in activities,no significant changes in weight,no sleep disturbances or insomnia,no agitation,no feelings of worthlessness or guilt,no thoughts of suicide,no history of depression, andno history of mood disorders. For orientation, patient reportsno disorientation to time,no disorientation to date, andno disorientation to place. For concentration and memory, patient reportsno decreased concentrating ability,no memory lapses or loss, anddoes not forget words. For speech/motor difficulties, patient reportsno speech difficulties,no difficulty expressing formulated concepts,no difficulty with fine manipulative tasks,no difficulty writing/copying,no slowed reaction time, anddoes not knock things over when trying to pick them up.Functional AbilityFor hearing, patient reportsno loss of hearing. For vision, patient reportsno vision problems. For activities of daily living, patient reportsable to bathe with limited or no assistance,able to contol urination and bowels,able to dress with limited or no assistance,able to feed self with limited or no assistance,able to get out of chair or bed with limited or no assistance,able to groom with limited or no assistance, andable to toilet with limited or no assistance. For instrumental activities of daily living, patient reportsable to do house work with limited or no assistance,able to grocery shop with limited or no assistance,able to manage medications with limited or no assistance,able to manage money with limited or no assistance,able to prepare meals with limited or no assistance, andable to use the phone with limited or no assistance. For falls risk assessment, patient reportsno frequent falls while walking,no fall in the past year,no fall since last visit, andno dizziness/vertigo. For home safety, patient reportsno unsafe payton hazzards,no unsafe stairs,no unsafe gas appliances,working smoke/co detectors,wears protective head gear for biking/high velocity,use of seatbelts,no vision or hearing loss while driving,has hand bars in the bathroom/shower, andgood lighting in the home. For current level of pain, patient reportspain present.ROS as noted in the HPI 73 yr old male presents for a medicare annual wellness. He has some T Spine pain and low energy and fatigue. Lola Cohen, STRIP MILL OPERATOR [address], [place], [address], [place] - [facility] 08/08/2024 16:53:53 12/12/2024 text/html ROS as noted in the HPI 74 yr old male presents 1 week post cardiac stents with throat burning and fatigue. Lola Cohen, STRIP MILL OPERATOR [address], [place], [address], [place] - [facility] 12/12/2024 16:32:22
[2025-05-24 12:51] LABS: Hematocrit 40.5 % (42.0-52.0); Hemoglobin 13.6 g/dL (14.1-18.0); Immature Granulocytes % 0.3 %; Mean Corpuscular HGB Conc 33.6 g/dL (31.8-35.4); Mean Corpuscular Hemoglobin 32.1 pg (27.0-31.2); Mean Corpuscular Volume 95.5 fl (80-94); Nucleated Red Blood Cells % 0 %; Platelet Count 163 K/mm3 (142-424); Red Blood Count 4.24 M/mm3 (4.60-6.20); Red Cell Distribution Width-SD 42.3 fL; White Blood Count 6.3 K/mm3 (4.8-10.8)
== END 2025-05-24 23:59 | disposition home or self-care (01) ==
LOC: LAB 11:47
PROVIDERS: Registered Nurse; PCP Nurse Practitioner Family; Visit Provider Internal Medicine
DX: D69.3 Immune thrombocytopenic purpura (principal)
CPT/HCPCS: 36415; 85025

== ENCOUNTER 2025-06-12 10:20 | Outpatient (CLI) | payer MEDICARE, OTHER, SELFPAY ==
--- OUTSIDE RECORDS SUMMARY | 2025-06-12 10:31 | XMS_ITS | Clinical Summary ---
Author Organization Healthcare Address [address] [place] [address] Care Team Providers Care Power House Control Room Operator Name Role Phone Unavailable Primary Care Provider Unavailabl e Encounters Date Type Department Care Team Description 03/13/2025 Orders Only [facility] Hematology/BMT and Cellular Therapy Program [address] [place] [address] Luann Osorio RN from Last 3 Months [...] 2000 [facility]-Zoster Vaccines (1 of 2) 2000 [id number] Vaccine (1 - 20 24-25 season) 2024 [...]
[2025-06-12 11:28] LABS: Hematocrit 39.4 % (42.0-52.0); Hemoglobin 13.5 g/dL (14.1-18.0); Immature Granulocytes % 0.3 %; Mean Corpuscular HGB Conc 34.3 g/dL (31.8-35.4); Mean Corpuscular Hemoglobin 32.8 pg (27.0-31.2); Mean Corpuscular Volume 95.6 fl (80-94); Nucleated Red Blood Cells % 0 %; Platelet Count 155 K/mm3 (142-424); Red Blood Count 4.12 M/mm3 (4.60-6.20); Red Cell Distribution Width-SD 44.1 fL; White Blood Count 6.6 K/mm3 (4.8-10.8)
== END 2025-06-12 23:59 | disposition home or self-care (01) ==
PROVIDERS: Physician Assistant; PCP Nurse Practitioner Family; Visit Provider Internal Medicine
DX: D69.59 Other secondary thrombocytopenia (principal); Z12.5 Encounter for screening for malignant neoplasm of prostate
CPT/HCPCS: 36415; 85025; G0103

== ENCOUNTER 2025-07-18 16:02 | Outpatient (CLI) | payer MEDICARE, OTHER, SELFPAY ==
--- OUTSIDE RECORDS SUMMARY | 2025-07-18 16:05 | XMS_ITS | Clinical Summary ---
Author Organization Healthcare Address [address] [place] [address] Care Team Providers Care Tree Doctor Name Role Phone Unavailable Primary Care Provider Unavailabl e Immunizations Immunization Administration Dates Next Due IG [...] 2000 [facility]-Zoster Vaccines (1 of 2) 2000 [facility]-RSV Vaccine: 60+ Years o r (1 - 1-dose 75+ series) 2025 [id number] Vaccine (1 - 20 24-25 season) 2025 [facility]-Influenza Vaccine (#1) 2025 09/06/2018 [facility]-DTaP,Tdap,and [...]
[2025-07-18 17:02] LABS: Hematocrit 38.0 % (42.0-52.0); Hemoglobin 13.2 g/dL (14.1-18.0); Immature Granulocytes % 0.3 %; Mean Corpuscular HGB Conc 34.7 g/dL (31.8-35.4); Mean Corpuscular Hemoglobin 33.2 pg (27.0-31.2); Mean Corpuscular Volume 95.5 fl (80-94); Nucleated Red Blood Cells % 0 %; Platelet Count 165 K/mm3 (142-424); Red Blood Count 3.98 M/mm3 (4.60-6.20); Red Cell Distribution Width-SD 43.8 fL; White Blood Count 7.2 K/mm3 (4.8-10.8)
[2025-07-18 17:24] LABS: Anion Gap 10.5 mEq/L (5-15); Blood Urea Nitrogen 14 mg/dl (9-20); Calcium 8.6 mg/dl (8.4-10.2); Carbon Dioxide 24 mmol/L (22.0-30.0); Chloride 104 mmol/L (98-107); Creatinine,Serum 0.80 mg/dl (0.66-1.25); Estimated Glomerular Filt Rate 94 ml/min (>60); GFR (African American) 114 ML/MIN (>60); Glucose 94 mg/dl (74-100); Potassium 4.5 mmoL/L (3.5-5.1); Sodium 134 mmol/L (136-145)
== END 2025-07-18 23:59 | disposition home or self-care (01) ==
LOC: LAB 16:03
PROVIDERS: PCP Nurse Practitioner Family; Visit Provider Internal Medicine
DX: D69.3 Immune thrombocytopenic purpura (principal); D63.8 Anemia in other chronic diseases classified elsewhere; D69.59 Other secondary thrombocytopenia
CPT/HCPCS: 36415; 80048; 85025

== ENCOUNTER 2025-09-24 10:22 | Outpatient (CLI) | payer MEDICARE, OTHER, SELFPAY ==
--- OUTSIDE RECORDS SUMMARY | 2025-09-24 10:45 | XMS_ITS | Clinical Summary ---
Author Organization Healthcare Address [address] [place] [address] Care Team Providers Care Social Work Supervisor Name Role Phone Unavailable Primary Care Provider [...] Date Last Done Comments [facility]-Depression Screening 1950 [facility]-Infant/Child/Adol SDOH Screenings 1950 UK[facility]- SDOH Screenings 1968 [facility]-Adult SDOH Screenings 1968 CT Colonography 1995 Colonoscopy 1995 FIT-DNA 1995 FIT 1995 FOBT 1995 Sigmoidoscopy 1995 [facility]-Colorectal Cancer Screening 1995 [facility]-Pneumococcal Vaccine: 50 + Years (1 of 1 - PCV) 2000 [facility]-Zoster Vaccines (1 of 2) 2000 [facility]-RSV Vaccine: 60+ Years o r (1 - 1-dose 75+ series) 2025 [id number] Vaccine (1 - 20 25-26 season) 2025 [facility]-Influenza Vaccine (#1) 2025 09/06/2018 [...]
[2025-09-24 11:12] LABS: Hematocrit 38.7 % (42.0-52.0); Hemoglobin 13.4 g/dL (14.1-18.0); Immature Granulocytes % 0.3 %; Mean Corpuscular HGB Conc 34.6 g/dL (31.8-35.4); Mean Corpuscular Hemoglobin 33.0 pg (27.0-31.2); Mean Corpuscular Volume 95.3 fl (80-94); Nucleated Red Blood Cells % 0 %; Platelet Count 148 K/mm3 (142-424); Red Blood Count 4.06 M/mm3 (4.60-6.20); Red Cell Distribution Width-SD 41.6 fL; White Blood Count 6.5 K/mm3 (4.8-10.8)
== END 2025-09-24 23:59 | disposition home or self-care (01) ==
LOC: LAB 10:22
PROVIDERS: Physician Assistant; PCP Nurse Practitioner Family; Visit Provider Internal Medicine
DX: D69.59 Other secondary thrombocytopenia (principal)
CPT/HCPCS: 36415; 85025